=== PATIENT | female | born 1945 | race Caucasian/White ===

== ENCOUNTER 2020-10-02 20:23 | Emergency (ER) | payer MEDICARE, OTHER ==
[~2020-10-02] VITALS: Ht 162.5 cm; Wt 98.5 kg
[~2020-10-02 20:23] MED LIST: ACHD5005 PO; ASPI-999 PO; LEVO112T55 PO
--- NOTE | 2020-10-02 20:36 | ED Neurological Problem ---
General Stated Complaint: LT SIDE NUMBNESS IN FACE/ARMS History of Present Illness Date Seen by Provider: Oct 02, 2020 Time Seen by Provider: 20:31 Initial Comments 75 y/o female presents 30 minutes after onset of sudden left arm weakness and numbness. States her arm "was just flopping" as she couldn't move it at all. By arrival to ER she was able to move it, but still having tingling and now w tingling of left face and mouth. No Hx CVA or other neuro deficits. No recent illness or change to Medical condition. Denies new medication, does not take any anticoagulants. Allergies and Home Medications Allergies Coded Allergies: No Known Drug Allergies (Unverified , 03/24/15) Home Medications Aspirin 81 Mg Tab.chew, 81 MG PO DAILY, (Reported) Hydrocodone Bit/Acetaminophen 1 Each Tablet, 1-2 EACH PO Q6H PRN for PAIN Prescribed by: MIO CAUSEY on 03/24/15 1710 Levothyroxine Sodium 112 Mcg Tablet, 112 MCG PO DAILY, (Reported) Patient Home Medication List Home Medication List Reviewed: Yes Review of Systems Review of Systems Constitutional: No chills, No fever, No malaise; weakness Eyes: No Symptoms Reported Ears, Nose, Mouth, Throat: no symptoms reported Respiratory: no symptoms reported; No cough, No short of breath Cardiovascular: No chest pain, No edema, No palpitations, No syncope Gastrointestinal: No abdominal pain, No loss of appetite, No nausea, No vomiting Musculoskeletal: No back pain, No joint pain, No muscle pain; muscle weakness (LUE) Psychiatric/Neurological: See HPI, Numbness, Tingling; Denies Unable to Move Lower Ext; Unable to Move Upper Ext (prior to arrival, resolved on arrival), Weakness Past Azjxvwe-Yxmznb-Teeufo Hx Past Med/Social Hx: Reviewed Nursing Past Med/Soc Hx Immunizations Up To Date Date of Pneumonia Vaccine: Feb 02, 2015 Date of Influenza Vaccine: Feb 02, 2015 Past Medical History Appendectomy High Cholesterol, Hypertension Hypothyroidsim Family Medical History No Pertinent Family Hx Physical Exam Vital Signs Vital Signs - First Documented 10/02/20 20:25 Temp 36.3 Pulse 83 Resp 20 B/P (MAP) 152/76 (101) Pulse Ox 96 O2 Delivery Room Air Capillary Refill : Height, Weight, BMI Height: 5'4" Weight: 200lbs. oz. [id number]; BMI Method:Stated General Appearance: WD/WN, no apparent distress HEENT: PERRL/EOMI, normal ENT inspection Neck: non-tender, full range of motion, supple, normal inspection Respiratory: chest non-tender, lungs clear, normal breath sounds, no respiratory distress, no accessory muscle use Cardiovascular: regular rate, rhythm, no edema, no JVD Gastrointestinal: normal bowel sounds, non tender, soft, no organomegaly, no pulsatile mass Back: normal inspection, no CVA tenderness, no vertebral tenderness Extremities: normal range of motion, non-tender, normal inspection, no pedal edema, no calf tenderness, normal capillary refill Neurologic/Psychiatric: steam gigger II-XII nml as tested, alert, normal mood/affect, oriented x 3 Crainal Nerves: normal hearing, normal speech, PERRL; No abnormal speech, No facial asymmetry, No facial droop; facial paresthesias (left) Skin: normal color, warm/dry Stroke NIH Stroke Scale Assessment Select: Initial Level of Consciousness: 0=Alert (0), Level of Consciousness- Questions: 0=Answers both month/age (0), LOC Commands: 0=Performs both tasks (0), Gaze: Normal (0), Visual Alston: 0=No visual loss (0), Facial Movement (Facial Paresis): 0=Normal symmetrical mnt (0), Motor Function-Arms Right: 0=No drift (0), Motor Function-Arms Left: 0=No drift (0), Motor Function-Legs Right: 0=No drift (0), Motor Function-Legs Left: 0=No drift (0), Limb Ataxia: 0=Absent (0), Sensory: 1=Mild to Moderate loss (1), Best Language: 0=No aphasia (0), Dysarthria: 0=Normal (0), Extinction & Inattention: 0=No abnormality (0), Total: 1 Progress/Results/Core Measures Results/Orders Lab Results Laboratory Tests Test 10/02/20 10:45 Range/Units White Blood Count 13.3 H 4.3-11.0 10^3/uL Red Blood Count 4.88 4.35-5.85 10^6/uL Hemoglobin 14.6 11.5-16.0 G/DL Hematocrit 43 35-52 % Mean Corpuscular Volume 87 80-99 FL Mean Corpuscular Hemoglobin 30 25-34 PG Mean Corpuscular Hemoglobin Concent 34 32-36 G/DL Red Cell Distribution Width 13.2 10.0-14.5 % Platelet Count 248 130-400 10^3/uL Mean Platelet Volume 9.8 7.4-10.4 FL Immature Granulocyte % (Auto) 0 % Neutrophils (%) (Auto) 45 42-75 % Lymphocytes (%) (Auto) 44 12-44 % Monocytes (%) (Auto) 8 0-12 % Eosinophils (%) (Auto) 2 0-10 % Basophils (%) (Auto) 1 0-10 % Neutrophils # (Auto) 6.0 1.8-7.8 X 10^3 Lymphocytes # (Auto) 5.9 H 1.0-4.0 X 10^3 Monocytes # (Auto) 1.1 H 0.0-1.0 X 10^3 Eosinophils # (Auto) 0.3 0.0-0.3 10^3/uL Basophils # (Auto) 0.1 0.0-0.1 10^3/uL Immature Granulocyte # (Auto) 0.0 0.0-0.1 10^3/uL Prothrombin Time 15.0 H 12.2-14.7 SEC INR Comment 1.2 0.8-1.4 Activated Partial Thromboplast Time 25 24-35 SEC Sodium Level 139 135-145 MMOL/L Potassium Level 3.6 3.6-5.0 MMOL/L Chloride Level 101 98-107 MMOL/L Carbon Dioxide Level 26 21-32 MMOL/L Anion Gap 12 5-14 MMOL/L Blood Urea Nitrogen 20 H 7-18 MG/DL Creatinine 0.99 0.60-1.30 MG/DL Estimat Glomerular Filtration Rate 55 BUN/Creatinine Ratio 20 Glucose Level 114 H 70-105 MG/DL Calcium Level 9.8 8.5-10.1 MG/DL Corrected Calcium 10.1 8.5-10.1 MG/DL Total Bilirubin 0.8 0.1-1.0 MG/DL Aspartate Amino Transf (AST/SGOT) 20 5-34 U/L Alanine Aminotransferase (ALT/SGPT) 17 0-55 U/L Alkaline Phosphatase 96 40-136 U/L Troponin I < 0.30 <0.30 NG/ML Total Protein 7.3 6.4-8.2 GM/DL Albumin 3.6 3.2-4.5 GM/DL My Orders Orders - GIN MORALES DO Ct Head Wo (10/02/20 20:28) Ed Iv/Invasive Line Start (10/02/20 20:30) Ekg Tracing (10/02/20 20:30) Troponin I Fs (10/02/20 20:30) Cbc With Automated Diff (10/02/20 20:30) Comprehensive Metabolic Panel (10/02/20 20:30) Partial Thromboplastin Time (10/02/20 20:30) Protime With Inr (10/02/20 20:30) Aspirin Chewable Tablet (Baby Aspirin Ch (10/02/20 21:00) Medications Given in ED Current Medications Medications Dose Ordered Sig/Oapl Route Start Time Stop Time Status Last Admin Dose Admin Aspirin 324 mg ONCE ONCE PO 10/02/20 21:00 10/02/20 21:01 DC 10/02/20 21:02 324 MG Vital Signs/I&O 10/02/20 10/02/20 20:25 21:21 Temp 36.3 Pulse 83 74 Resp 20 18 B/P (MAP) 152/76 (101) 113/96 Pulse Ox 96 95 O2 Delivery Room Air Room Air Progress Progress Note : Time: 21:15 Progress Note Symptoms rapidly resolving (less than one hour after onset) on arrival to ER and cont'd to improve to resolution in ER. Discussed labs and CT findings and need for follow up for Neuro evaluation. Advised to take a full ASA daily until instructed otherwise by her PCP or Neurologist. Advised to call 911 for any new neuro deficit or concerns of stroke. Pt and family in agreement w Tx given and planned follow up. All questions were answered and reassurance given w warnings of potential stroke risk. Initial ECG Impression Date: Oct 02, 2020 Initial ECG Impression Time: 20:35 Initial ECG Rate: 70 Initial ECG Rhythm: Normal Sinus Initial ECG Intervals: Normal Initial ECG Impression: Normal Diagnostic Imaging Diagonstic Imaging: CT Comments COMPARISON: None available. FINDINGS: The cerna-white matter differentiation is normal. No mass effect or midline shift. The ventricles are normal in size and configuration. Basilar cisterns are patent. There are no intra- or extra-axial fluid collections. There is no intracranial hemorrhage. Periventricular white matter hypoattenuation is in keeping with chronic small vessel ischemic changes. The orbits are normal. Paranasal sinuses are normal. Mastoid air cells are clear. No soft tissue abnormality is seen. No osseus lesions or fractures are seen. IMPRESSION: 1. Chronic microvascular changes in the white matter without acute intracranial abnormality. Dictated by: Dictated on workstation # [id number] Dict: 10/02/202040 Trans: 10/02/202099 [facility] [id number] Interpreted by: BRODERICK HERNANDEZ MD Electronically signed by: BRODERICK HERNANDEZ MD 10/02/202099 Departure Impression Primary Impression: Transient cerebral ischemia Qualified Codes: G45.9 - Transient cerebral ischemic attack, unspecified Disposition: HOME, SELF-CARE Condition: Improved Departure-Patient Inst. Referrals: DAY STALLWORTH MD (PCP/Family) Primary Care Physician Patient Instructions: Transient Ischemic Attack (DC) Add. Discharge Instructions: Call Dr Stallworth tomorrow morning to ask about a Neurology evaluation after having a "TIA". Take a Full aspirin (or 4 baby aspirin) daily until instructed otherwise by a Physician. Call 911 for any new Stroke symptoms GIN MORALES DO Oct 02, 2020 20:36
--- NOTE | 2020-10-02 20:47 | Diagnostic Imaging Report ---
EXAMINATION: CT head without contrast. TECHNIQUE: Multiple contiguous axial images were obtained through the brain without the use of intravenous contrast. All CT scans use one or more of the following dose optimizing techniques: automated exposure control, MA and/or KvP adjustment based on patient size and exam type or iterative reconstruction. HISTORY: Left arm numbness COMPARISON: None available. FINDINGS: The cerna-white matter differentiation is normal. No mass effect or midline shift. The ventricles are normal in size and configuration. Basilar cisterns are patent. There are no intra- or extra-axial fluid collections. There is no intracranial hemorrhage. Periventricular white matter hypoattenuation is in keeping with chronic small vessel ischemic changes. The orbits are normal. Paranasal sinuses are normal. Mastoid air cells are clear. No soft tissue abnormality is seen. No osseus lesions or fractures are seen. IMPRESSION: 1. Chronic microvascular changes in the white matter without acute intracranial abnormality. Dictated by: Dictated on workstation # [id number]
[2020-10-02 20:55] LABS: BASOPHILS # (AUTO) 0.1 10^3/uL (0.0-0.1); BASOPHILS % (AUTO) 1 % (0-10); EOSINOPHILS # (AUTO) 0.3 10^3/uL (0.0-0.3); EOSINOPHILS % (AUTO) 2 % (0-10); HEMATOCRIT 43 % (35-52); HEMOGLOBIN 14.6 G/DL (11.5-16.0); LYMPHOCYTES # (AUTO) 5.9 X 10^3 (1.0-4.0); LYMPHOCYTES % (AUTO) 44 % (12-44); MEAN CORPUSCULAR HEMOGLOBIN 30 PG (25-34); MEAN CORPUSCULAR HGB CONC 34 G/DL (32-36); MEAN CORPUSCULAR VOLUME 87 FL (80-99); MEAN PLATELET VOLUME 9.8 FL (7.4-10.4); MONOCYTES # (AUTO) 1.1 X 10^3 (0.0-1.0); MONOCYTES % (AUTO) 8 % (0-12); NEUTROPHILS % (AUTO) 45 % (42-75); PLATELET COUNT 248 10^3/uL (130-400); WHITE BLOOD COUNT 13.3 10^3/uL (4.3-11.0)
[2020-10-02] MEDS ORDERED: ASPIRIN 81 MG CHEW (CHILDREN'S ASA) PO ONE (21:00)
[2020-10-02 21:07] LABS: INR 1.2 (0.8-1.4)
[2020-10-02 21:13] LABS: ALANINE AMINOTRANSFERASE 17 U/L (0-55); ALBUMIN 3.6 GM/DL (3.2-4.5); ALKALINE PHOSPHATASE 96 U/L (40-136); BILIRUBIN,TOTAL 0.8 MG/DL (0.1-1.0); BUN/CREATININE RATIO 20; CALCIUM 9.8 MG/DL (8.5-10.1); CARBON DIOXIDE 26 MMOL/L (21-32); CHLORIDE 101 MMOL/L (98-107); CREATININE SERUM 0.99 MG/DL (0.60-1.30); GFR ESTIMATED 55; GLUCOSE 114 MG/DL (70-105); POTASSIUM 3.6 MMOL/L (3.6-5.0); SODIUM 139 MMOL/L (135-145); TOTAL PROTEIN 7.3 GM/DL (6.4-8.2)
[2020-10-02 21:21] VITALS: BP 113/96
== END 2020-10-02 21:21 | disposition home or self-care (01) ==
LOC: EDUNIT# 20:23 → ER FS 20:25
DX: G45.9 Transient cerebral ischemic attack, unspecified (principal); I10 Essential (primary) hypertension; E03.9 Hypothyroidism, unspecified; Z79.890 Hormone replacement therapy; Z79.899 Other long term (current) drug therapy; Z79.82 Long term (current) use of aspirin
CPT/HCPCS: 36415; 70450; 80053; 84484; 85025; 85610; 85730

== ENCOUNTER 2020-10-03 21:10 | Inpatient (IN) | payer MEDICARE, OTHER ==
[~2020-10-03] VITALS: Ht 162.5 cm; Wt 97.0 kg
[2020-10-03 21:13] VITALS: BP 137/109
[2020-10-03 21:33] LABS: BASOPHILS # (AUTO) 0.1 10^3/uL (0.0-0.1); BASOPHILS % (AUTO) 0 % (0-10); EOSINOPHILS # (AUTO) 0.3 10^3/uL (0.0-0.3); EOSINOPHILS % (AUTO) 2 % (0-10); HEMATOCRIT 42 % (35-52); HEMOGLOBIN 14.6 G/DL (11.5-16.0); LYMPHOCYTES # (AUTO) 5.7 X 10^3 (1.0-4.0); LYMPHOCYTES % (AUTO) 43 % (12-44); MEAN CORPUSCULAR HEMOGLOBIN 30 PG (25-34); MEAN CORPUSCULAR HGB CONC 35 G/DL (32-36); MEAN CORPUSCULAR VOLUME 87 FL (80-99); MEAN PLATELET VOLUME 9.8 FL (7.4-10.4); MONOCYTES # (AUTO) 1.2 X 10^3 (0.0-1.0); MONOCYTES % (AUTO) 9 % (0-12); NEUTROPHILS # (AUTO) 6.1 X 10^3 (1.8-7.8); NEUTROPHILS % (AUTO) 45 % (42-75); PLATELET COUNT 244 10^3/uL (130-400); WHITE BLOOD COUNT 13.4 10^3/uL (4.3-11.0)
[2020-10-03 21:46] LABS: EOSINOPHILS % (MANUAL) 2 %; LYMPHOCYTES % (MANUAL) 23 %; MONOCYTES % (MANUAL) 6 %; NEUTROPHILS % (MANUAL) 50 %
[2020-10-03 21:47] LABS: RBC MORPH NORMAL; REACTIVE LYMPHOCYTES 19 %
[2020-10-03 21:48] LABS: ALANINE AMINOTRANSFERASE 18 U/L (0-55); ALBUMIN 3.7 GM/DL (3.2-4.5); ALKALINE PHOSPHATASE 97 U/L (40-136); BILIRUBIN,TOTAL 0.9 MG/DL (0.1-1.0); BUN/CREATININE RATIO 16; CALCIUM 9.4 MG/DL (8.5-10.1); CARBON DIOXIDE 25 MMOL/L (21-32); CHLORIDE 99 MMOL/L (98-107); CREATININE SERUM 0.98 MG/DL (0.60-1.30); GFR ESTIMATED 55; GLUCOSE 104 MG/DL (70-105); POTASSIUM 3.6 MMOL/L (3.6-5.0); SODIUM 136 MMOL/L (135-145); TOTAL PROTEIN 7.3 GM/DL (6.4-8.2)
[2020-10-03 21:49] LABS: INR 1.2 (0.8-1.4); PROTHROMBIN TIME PATIENT 15.2 SEC (12.2-14.7)
--- NOTE | 2020-10-03 21:50 | ED General ---
General Chief Complaint: Neuro-Stroke Like Symptoms Stated Complaint: LT ARM/FACE NUMBNESS,LT HAND SWELL,SLURRING SPEECH Source of Information: Patient, Old Records History of Present Illness Date Seen by Provider: Oct 03, 2020 Time Seen by Provider: 21:11 Initial Comments 75 yo female presenting with complaints of continued numbness in left thumb all day since leaving last night. Then tonight around 1999 she woke up from a nap and had numbness and swelling in lower lip left side and left arm and hand. She had weakness in her left arm and hand where she was unable to grab grasp things at home. She felt her hand was just flopping. She took 4 baby aspirin at home when this was occurring. She had family bring her to the emergency department. She was seen October 02 for similar symptoms. At that time her left face was numb including left arm. Her symptoms quickly improved while she was here so she was discharged home. She states she was to see Dr. Stallworth in the morning and had planned on getting referred to neurology and [place] for further evaluation and work-up. However tonight when her symptoms returned she came back to the emergency department by private vehicle with her family. She denies any fall or injury. She denies taking any blood thinners. She has not had a prior stroke. Associated Systoms: No Chest Pain, No Cough, No Diaphoresis, No Fever/Chills, No Headaches, No Loss of Appetite, No Malaise, No Nausea/Vomiting, No Rash, No Seizure, No Shortness of Air, No Syncope, No Weakness Allergies and Home Medications Allergies Coded Allergies: No Known Drug Allergies (Unverified , 03/24/15) Home Medications Aspirin 81 Mg Tab.chew, 81 MG PO DAILY, (Reported) Hydrocodone Bit/Acetaminophen 1 Each Tablet, 1-2 EACH PO Q6H PRN for PAIN Prescribed by: MIO CAUSEY on 03/24/15 1710 Levothyroxine Sodium 112 Mcg Tablet, 112 MCG PO DAILY, (Reported) Patient Home Medication List Home Medication List Reviewed: Yes Review of Systems Review of Systems Constitutional: No chills, No fever EENTM: no symptoms reported Respiratory: no symptoms reported Cardiovascular: no symptoms reported Gastrointestinal: no symptoms reported Genitourinary: no symptoms reported Musculoskeletal: see HPI Skin: see HPI Psychiatric/Neurological: See HPI Hematologic/Lymphatic: Denies Blood Clots Past Xzzwxfo-Mbwfeu-Fcdtso Hx Past Med/Social Hx: Reviewed Nursing Past Med/Soc Hx Immunizations Up To Date Date of Pneumonia Vaccine: Feb 02, 2015 Date of Influenza Vaccine: Feb 02, 2015 Past Medical History Surgeries: Yes (D&C) Appendectomy Respiratory: No Cardiac: Yes High Cholesterol, Hypertension Neurological: No Gastrointestinal: No Musculoskeletal: No Endocrine: Yes Hypothyroidsim Cancer: No Psychosocial: No Family Medical History No Pertinent Family Hx Physical Exam Vital Signs Vital Signs - First Documented 10/03/20 21:13 Temp 36.9 Pulse 76 Resp 15 B/P (MAP) 137/109 Pulse Ox 94 O2 Delivery Room Air Capillary Refill : Height, Weight, BMI Height: 5'4" Weight: 200lbs. oz. [id number]; 37.00 BMI Method:Stated General Appearance: WD/WN, Anxious, Obese HEENT: PERRL/EOMI, Normal ENT Inspection, Pharynx Normal Neck: Full Range of Motion, Normal Inspection, Non Tender, Supple; No Carotid Bruit Respiratory: Chest Non Tender, Lungs Clear, Normal Breath Sounds, No Accessory Muscle Use, No Respiratory Distress Cardiovascular: Regular Rate, Rhythm, No Murmur, Normal Peripheral Pulses Gastrointestinal: Normal Bowel Sounds, No Pulsatile Mass, Non Tender, Soft Rectal: Deferred Extremity: Normal Capillary Refill, Non Tender, No Calf Tenderness, No Pedal Edema, Swelling (Left hand) Neurologic/Psychiatric: Alert, Oriented x3, 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 Sensation intact to light touch throughout the rest of the body) Skin: Normal Color, Warm/Dry Progress/Results/Core Measures Suspected Sepsis SIRS Temperature: Pulse: 76 Respiratory Rate: 15 Laboratory Tests 10/03/20 21:22: White Blood Count 13.4H Blood Pressure 137 /109 Mean: Laboratory Tests 10/03/20 21:22: Creatinine 0.98, INR Comment 1.2, Platelet Count 244, Total Bilirubin 0.9 Results/Orders Lab Results Laboratory Tests Test 10/03/20 21:22 10/03/20 21:41 10/03/20 22:04 Range/Units White Blood Count 13.4 H 4.3-11.0 10^3/uL Red Blood Count 4.87 4.35-5.85 10^6/uL Hemoglobin 14.6 11.5-16.0 G/DL Hematocrit 42 35-52 % Mean Corpuscular Volume 87 80-99 FL Mean Corpuscular Hemoglobin 30 25-34 PG Mean Corpuscular Hemoglobin Concent 35 32-36 G/DL Red Cell Distribution Width 13.2 10.0-14.5 % Platelet Count 244 130-400 10^3/uL Mean Platelet Volume 9.8 7.4-10.4 FL Immature Granulocyte % (Auto) 0 % Neutrophils (%) (Auto) 45 42-75 % Lymphocytes (%) (Auto) 43 12-44 % Monocytes (%) (Auto) 9 0-12 % Eosinophils (%) (Auto) 2 0-10 % Basophils (%) (Auto) 0 0-10 % Neutrophils # (Auto) 6.1 1.8-7.8 X 10^3 Lymphocytes # (Auto) 5.7 H 1.0-4.0 X 10^3 Monocytes # (Auto) 1.2 H 0.0-1.0 X 10^3 Eosinophils # (Auto) 0.3 0.0-0.3 10^3/uL Basophils # (Auto) 0.1 0.0-0.1 10^3/uL Immature Granulocyte # (Auto) 0.0 0.0-0.1 10^3/uL Neutrophils % (Manual) 50 % Lymphocytes % (Manual) 23 % Monocytes % (Manual) 6 % Eosinophils % (Manual) 2 % Reactive Lymphocytes 19 % Blood Morphology Comment NORMAL Prothrombin Time 15.2 H 12.2-14.7 SEC INR Comment 1.2 0.8-1.4 Activated Partial Thromboplast Time 25 24-35 SEC Sodium Level 136 135-145 MMOL/L Potassium Level 3.6 3.6-5.0 MMOL/L Chloride Level 99 98-107 MMOL/L Carbon Dioxide Level 25 21-32 MMOL/L Anion Gap 12 5-14 MMOL/L Blood Urea Nitrogen 16 7-18 MG/DL Creatinine 0.98 0.60-1.30 MG/DL Estimat Glomerular Filtration Rate 55 BUN/Creatinine Ratio 16 Glucose Level 104 70-105 MG/DL Calcium Level 9.4 8.5-10.1 MG/DL Corrected Calcium 9.6 8.5-10.1 MG/DL Total Bilirubin 0.9 0.1-1.0 MG/DL Aspartate Amino Transf (AST/SGOT) 21 5-34 U/L Alanine Aminotransferase (ALT/SGPT) 18 0-55 U/L Alkaline Phosphatase 97 40-136 U/L Troponin I < 0.30 <0.30 NG/ML Total Protein 7.3 6.4-8.2 GM/DL Albumin 3.7 3.2-4.5 GM/DL Glucometer 103 70-110 MG/DL Urine Color YELLOW Urine Clarity CLEAR Urine pH 6.0 5-9 Urine Specific [place] <=1.005 1.016-1.022 Urine Protein NEGATIVE NEGATIVE Urine Glucose (UA) NEGATIVE NEGATIVE Urine Ketones NEGATIVE NEGATIVE Urine Nitrite NEGATIVE NEGATIVE Urine Bilirubin NEGATIVE NEGATIVE Urine Urobilinogen 0.2 < = 1.0 MG/DL Urine Leukocyte Esterase 1+ H NEGATIVE Urine RBC (Auto) TRACE H NEGATIVE Urine RBC 0-2 /HPF Urine WBC 10-25 H /HPF Urine Squamous Epithelial Cells 2-5 /HPF Urine Crystals NONE /LPF Urine Bacteria 2+ /HPF Urine Casts NONE /LPF Urine Mucus NONE /LPF Urine Culture Indicated YES My Orders Orders - YOSELIN CORRALES MD Cbc With Automated Diff (10/03/20 21:17) Protime With Inr (10/03/20 21:17) Partial Thromboplastin Time (10/03/20 21:17) Comprehensive Metabolic Panel (10/03/20 21:17) Troponin I Fs (10/03/20 21:17) Ua Culture If Indicated (10/03/20 21:17) Chest 1 View Ap/Pa Only (10/03/20 21:17) Ekg Tracing (10/03/20 21:17) Accucheck Stat ONCE (10/03/20 21:17) Ed Iv/Invasive Line Start (10/03/20 21:17) Vital Signs Stroke Patient Q15M (10/03/20 21:17) Ct Head Wo-R/O Stroke (10/03/20 21:17) O2 (10/03/20 21:17) Intake & Output 06,14,22 (10/03/20 21:17) Monitor-Rhythm Ecg Trace Only (10/03/20 21:17) Dysphagia Screening Tool (10/03/20 21:17) Manual Differential (10/03/20 21:22) Ct Angio Head/Neck (10/03/20 22:31) Clopidogrel Tablet (Plavix Tablet) (10/03/20 22:31) Iohexol Injection (Omnipaque 350 Mg/Ml 1 (10/03/20 22:45) Received Contrast (Hold Metformin- Contr (10/03/20 22:45) Ns (Ivpb) (Sodium Chloride 0.9% Ivpb Bag (10/03/20 22:45) Urine Culture (10/03/20 22:04) Ceftriaxone For Iv Use (Rocephin For I (10/03/20 23:15) Medications Given in ED Current Medications Medications Dose Ordered Sig/Opal Route Start Time Stop Time Status Last Admin Dose Admin Iohexol 100 ml ONCE ONCE IV 10/03/20 22:45 10/03/20 22:46 DC 10/03/20 23:12 75 ML Sodium Chloride 100 ml ONCE ONCE IV 10/03/20 22:45 10/03/20 22:46 DC 10/03/20 23:13 80 ML Vital Signs/I&O 10/03/20 10/03/20 10/03/20 21:13 21:13 23:59 Temp 36.9 36.9 Pulse 76 76 66 Resp 15 15 16 B/P (MAP) 137/109 137/109 (118) 141/88 Pulse Ox 94 94 96 O2 Delivery Room Air Room Air Capillary Refill : Point of Care Testing Finger Stick Blood Glucose: 108 Progress Note #1: Progress Note Patient was started as a stroke activation for her complaint and symptoms. We will compare her testing to what was done on the . She reports that she is already seen improvement from her symptoms started at home around 8 PM. Differential diagnosis includes stroke, TIA, thrombus in heart rate with clot seeding Progress Note #2: Time: 21:54 Progress Note Labs are all stable from October 02. Mild elevation of WBC count. No acute changes on CT head or CXR. Pt continues to complain of numbness in left hand/fingertips. Will check with patient to see if they are wanting to go to [place] still can call to see if I can reach the neurology/stroke provider there and see what they recommend. Progress Note #3: Progress Note Patient and family state that they would like to go south to [place] or [place]. They report being told last night by the ER doctor that she had to be seen by neurologist so she would like to do that by going to [place]. 221 call placed to [facility] in [place] and told by [place] at the transfer center that they were at capacity and did not have beds available 2214 [place] at transfer center for [facility] stated that they were at capacity and did not have beds available [address] Augustin about possible admission to [facility] for risk stratification work-up for TIA. She requested neurology be consulted through the stroke consultation line. [address] Mcginnis at the stroke neurology consult line. He recommended MRI brain to evaluate for possible cortical stroke. manager income tax to watch for possible atrial fibrillation as source of her symptoms. CTA head and neck to look for large vessel occlusion and evaluate carotids. Echocardiogram to look for thrombus in heart. May need event monitor if not picking up any arrhythmia or atrial fibrillation on telemetry in hospital. Dual antiplatelet therapy with Plavix and aspirin for at least a month. Change her cholesterol medicine from Simvastatin 20 mg to Atorvastatin 40 mg. 2314 d/w Dr. Augustin and will admit to stepdown or icu to get neurochecks. She also has findings for a UTI so will give Rocephin to help treat for that. ECG Initial ECG Impression Date: Oct 03, 2020 Initial ECG Impression Time: 21:25 Initial ECG Rate: 74 Initial ECG Rhythm: Normal Sinus Initial ECG Comparisson: Unchanged Comment Sinus rhythm with heart rate 74 bpm. Borderline prolonged MA interval at 223 ms. QT interval 420 ms with a QTc interval 4 and [address] elevation. Appears similar to prior tracings. Diagnostic Imaging Diagonstic Imaging: Xray Plain Films/CT/US/NM/MRI: chest Comments NAME: [facility] REC#: [id number] PT STATUS: REG ER : 1945 PHYSICIAN: YOSELIN CORRALES MD ADMIT DATE: 10/03/20/ER FS Draft Date of Exam:10/03/20 CHEST 1 VIEW AP/PA ONLY EXAMINATION: Chest 1 view. HISTORY: Transient ischemic attack. COMPARISON: None available. FINDINGS: The lungs are clear without edema or pneumonia. No pleural effusion or pneumothorax. Heart size is normal. IMPRESSION: Clear lungs. Dictated on workstation # [id number] Dict: 10/03/202148 Trans: 10/03/202152 [facility] [id number] Interpreted by: BRODERICK HERNANDEZ MD Electronically signed by: Dorcasnsluz elena Imaging: CT Plain Films/CT/US/NM/MRI: head Comments NAME: [facility] REC#: [id number] PT STATUS: REG ER : 1945 PHYSICIAN: YOSELIN CORRALES MD ADMIT DATE: 10/03/20/ER FS Draft Date of Exam:10/03/20 CT HEAD WO-R/O STROKE EXAMINATION: CT head without contrast. TECHNIQUE: Multiple contiguous axial images were obtained through the brain without the use of intravenous contrast. All CT scans use one or more of the following dose optimizing techniques: automated exposure control, MA and/or KvP adjustment based on patient size and exam type or iterative reconstruction. HISTORY: Lip numbness. COMPARISON: None available. FINDINGS: The cerna-white matter differentiation is normal. No mass effect or midline shift. The ventricles are normal in size and configuration. Basilar cisterns are patent. There is no intra-axial or extra-axial fluid collection. There is no intracranial hemorrhage. The orbits are normal. Paranasal sinuses are normal. Mastoid air cells are clear. No soft tissue abnormality is seen. No osseus lesion or fracture is seen. IMPRESSION: No acute intracranial abnormality. Dictated on workstation # [id number] Dict: 10/03/202146 Trans: 10/03/202152 [facility] [id number] Interpreted by: BRODERICK HERNANDEZ MD Electronically signed by: Marlys Imaging: CT (angiogram) Plain Films/CT/US/NM/MRI: head (and neck) Comments Impression no acute findings in the arteries of the head and brain. No acute findings in the arteries of the neck. Read by radiologist Dr. Ana Blount MD at [phone] and faxed at [phone] Reviewed: Reviewed [facility] Study Departure Communication (Admissions) Time/Spoke to Admitting Phy: 23:14 d/w Dr. Augustin for [facility] and will admit for testing and risk stratification as blane mmended by Dr. Mcginnis from the Neurology stroke line with her having 2 ED visits for similar TIA symptoms in less than 24 hours. Impression Primary Impression: Transient cerebral ischemia Qualified Codes: G45.9 - Transient cerebral ischemic attack, unspecified Additional Impressions: Left face and left arm tingling Cystitis without hematuria Disposition: 30 STILL A PATIENT Condition: Stable Admissions Decision to Admit Reason: Admit from ER (General) Decision to Admit/Date: Oct 03, 2020 Time/Decision to Admit Time: 23:14 Departure-Patient Inst. Referrals: SELFDAY MD (PCP/Family) Primary Care Physician NIH Stroke Scale NIH Stroke Scale NIH : Select: Initial Level of Consciousness: 0=Alert Level of Consciousness-Questio: 0=Answers both month/age LOC Commands: 0=Performs both tasks Gaze: 0=Normal Visual [place]: 0=No visual loss Facial Movement (Facial Paresi: 0=Normal symmetrical mnt Motor Function-Arms Right: 0=No drift Motor Function-Arms Left: 0=No drift Motor Function-Legs Right: 0=No drift Motor Function-Legs Left: 0=No drift Limb Ataxia: 0=Absent Sensory: 1=Mild to Moderate loss Best Language: 0=No aphasia Dysarthria: 0=Normal Extinction & Inattention: 0=No abnormality NIH Stroke Scale Score: 1 YOSELIN CORRALES MD Oct 03, 2020 21:50
--- NOTE | 2020-10-03 21:53 | Diagnostic Imaging Report ---
EXAMINATION: Chest 1 view. HISTORY: Transient ischemic attack. COMPARISON: None available. FINDINGS: The lungs are clear without edema or pneumonia. No pleural effusion or pneumothorax. Heart size is normal. IMPRESSION: Clear lungs. Dictated by: Dictated on workstation # [id number]
--- NOTE | 2020-10-03 21:53 | Diagnostic Imaging Report ---
EXAMINATION: CT head without contrast. TECHNIQUE: Multiple contiguous axial images were obtained through the brain without the use of intravenous contrast. All CT scans use one or more of the following dose optimizing techniques: automated exposure control, MA and/or KvP adjustment based on patient size and exam type or iterative reconstruction. HISTORY: Lip numbness. COMPARISON: None available. FINDINGS: The cerna-white matter differentiation is normal. No mass effect or midline shift. The ventricles are normal in size and configuration. Basilar cisterns are patent. There is no intra-axial or extra-axial fluid collection. There is no intracranial hemorrhage. The orbits are normal. Paranasal sinuses are normal. Mastoid air cells are clear. No soft tissue abnormality is seen. No osseus lesion or fracture is seen. IMPRESSION: No acute intracranial abnormality. Dictated by: Dictated on workstation # [id number]
[2020-10-03] MEDS ORDERED: CLOPIDOGREL 75 MG (PLAVIX) TABLET PO STA (22:31)
[2020-10-03] MEDS ORDERED: IOHEXOL 350 MG/ML 100 ML (OMNIPAQUE 350) VIAL IV ONE (22:45)
[2020-10-03] MEDS ORDERED: HOLD METFORMIN - RECEIVED CONTRAST 20 ML VIAL IV SCH (22:45)
[2020-10-03] MEDS ORDERED: NS 100 ML (IVPB) BAG IV ONE (22:45)
[2020-10-03 22:59] LABS: CLARITY,URINE CLEAR; COLOR,URINE YELLOW
[2020-10-03 23:00] LABS: BILIRUBIN,URINE NEGATIVE (NEGATIVE); GLUCOSE, URINE (UA) NEGATIVE (NEGATIVE); KETONES,URINE NEGATIVE (NEGATIVE); NITRITE,URINE NEGATIVE (NEGATIVE); PROTEIN,URINE NEGATIVE (NEGATIVE)
[2020-10-03 23:01] LABS: BACTERIA,URINE 2+ /HPF; LEUKOCYTE ESTERASE ,URINE 1+ (NEGATIVE); RBC,URINE 0-2 /HPF
[2020-10-03] MEDS ORDERED: cefTRIAXone 1,000 MG in WATER (STERILE) FOR INJECTION 10 ML IV STA (23:15)
[2020-10-04] VITALS (13 sets, daily range): BP systolic 114–144; BP diastolic 72–110
[2020-10-04] MEDS ORDERED: NS IV 1000 ML 1,000 ML ONE (01:07)
[2020-10-04] MEDS: NS IV 1000 ML 1,000 ML IV SCH ×2 (02:23→17:10)
[2020-10-04 04:17] LABS: BASOPHILS % (AUTO) 0 % (0-10); EOSINOPHILS # (AUTO) 0.2 10^3/uL (0.0-0.3); EOSINOPHILS % (AUTO) 2 % (0-10); HEMATOCRIT 47 % (35-52); HEMOGLOBIN 15.6 g/dL (11.5-16.0); LYMPHOCYTES # (AUTO) 3.7 10^3/uL (1.0-4.0); LYMPHOCYTES % (AUTO) 37 % (12-44); MEAN CORPUSCULAR HEMOGLOBIN 30 pg (25-34); MEAN CORPUSCULAR HGB CONC 33 g/dL (32-36); MEAN CORPUSCULAR VOLUME 90 fL (80-99); MEAN PLATELET VOLUME 10.4 fL (9.0-12.2); MONOCYTES # (AUTO) 0.8 10^3/uL (0.0-1.0); MONOCYTES % (AUTO) 8 % (0-12); NEUTROPHILS # (AUTO) 5.1 10^3/uL (1.8-7.8); NEUTROPHILS % (AUTO) 52 % (42-75); PLATELET COUNT 212 10^3/uL (130-400); WHITE BLOOD COUNT 9.9 10^3/uL (4.3-11.0)
[2020-10-04 04:28] LABS: ALBUMIN 3.7 GM/DL (3.2-4.5); CHLORIDE 107 MMOL/L (98-107); POTASSIUM 3.5 MMOL/L (3.6-5.0); SODIUM 142 MMOL/L (135-145)
[2020-10-04 04:29] LABS: CALCIUM 9.3 MG/DL (8.5-10.1)
[2020-10-04 04:30] LABS: GLUCOSE 111 MG/DL (70-105)
[2020-10-04 04:31] LABS: TOTAL PROTEIN 7.6 GM/DL (6.4-8.2)
[2020-10-04 04:32] LABS: BILIRUBIN,TOTAL 0.8 MG/DL (0.1-1.0); CARBON DIOXIDE 24 MMOL/L (21-32)
[2020-10-04 04:34] LABS: ALKALINE PHOSPHATASE 84 U/L (40-136); CREATININE SERUM 0.83 MG/DL (0.60-1.30); GFR ESTIMATED > 60
[2020-10-04 04:35] LABS: BUN/CREATININE RATIO 16
[2020-10-04 04:37] LABS: ALANINE AMINOTRANSFERASE 20 U/L (0-55)
--- NOTE | 2020-10-04 08:14 | Diagnostic Imaging Report ---
PROCEDURE: CT angiography of the head and CT angiography of the neck with and without contrast. TECHNIQUE: Contiguous noncontrast images were obtained from the skull base through the vertex. After intravenous contrast administration, helical CT angiography of the neck was performed. Source data was reformatted into 3D MIP projections. Delayed post contrast acquisition was also obtained. Auto Exposure Controls were utilized during the CT exam to meet ALARA standards for radiation dose reduction. INDICATION: Stroke symptoms left-sided paresthesias, weakness, facial numbness COMPARISON: None. FINDINGS: Visualized arch anatomy is grossly unremarkable. Left vertebral artery is dominant. Bilateral common carotid, internal carotid artery and bilateral vertebral arteries are widely patent. There is no dissection or irregular plaque formation. The right vertebral artery appears to end in PICA. The basilar artery, quechan of Olson and distal branches are intact. There is no large vessel occlusion. There is no aneurysm or AVM. There is no abnormal enhancement or mass. There is a serpiginous appearing fluid collection overlying the right masseter muscle of uncertain etiology. Consider ultrasound correlation. There is some slight inflammatory change in the subcutaneous fat. Underlying osseous structures are grossly unremarkable. The lung apices are clear. Central airways unremarkable. IMPRESSION: 1. No irregular plaque formation, large vessel occlusion or aneurysm. 2. No abnormal enhancement or intracranial mass. 3. Serpiginous appearing fluid collection overlying the right masseter muscle. This could represent congenital brachial cleft cyst given its location. Ultrasound correlation is recommended. Additionally, this could represent a chronic hematoma and/or seroma. Doubtful this represents an abscess. Dictated by: Dictated on workstation # [id number]
--- NOTE | 2020-10-04 08:38 | Diagnostic Imaging Report ---
PROCEDURE: MR imaging of the brain without contrast. TECHNIQUE: Multiplanar, multisequence MR imaging of the brain was performed without contrast. INDICATION: Left arm and face numbness. Evaluate for TIA. COMPARISON: CTA head and neck of 10/03/2020. Findings: Small punctate foci of acute/subacute ischemia are seen in the precentral gyrus of the right frontal lobe. No associated hemorrhage or mass effect is seen. Additional chronic microvascular disease is seen in the periventricular and subcortical white matter. The ventricles, cortical sulci, and basilar cisterns are symmetric and unremarkable. The sellar and suprasellar regions have a normal appearance. The brainstem and posterior fossa are unremarkable. Mild mucosal thickening is seen in the left sphenoid sinus. Otherwise, the paranasal sinuses and mastoid air cells demonstrate normal signal characteristics. The globes and orbits are symmetric and unremarkable. The scalp and calvarium have a normal appearance. The right parotid gland has a multicystic appearance with cystic dilation of the parotid duct. No evidence of acute inflammatory changes are seen. Impression: 1. Small punctate foci of acute/subacute ischemia in the precentral gyrus of the right frontal lobe. No associated mass effect or hemorrhage. 2. Chronic microvascular disease in the periventricular and subcortical white matter. 3. Multicystic appearance of the right parotid gland with cystic dilation of the right parotid duct. Findings likely represent sequelae of sialadenitis. Recommend correlation with patient history. Dictated by: Dictated on workstation # [id number]
[2020-10-04] MEDS: CLOPIDOGREL 75 MG (PLAVIX) TABLET PEG SCH (09:03)
[2020-10-04] MEDS: ASPIRIN 325 MG (5 GR) TABLET PEG SCH (09:03)
[2020-10-04 11:26] LABS: CHOLESTEROL 144 MG/DL (< 200); HDL CHOLESTEROL 55 MG/DL (40-60); TRIGLYCERIDES 121 MG/DL (<150); VLDL CHOLESTEROL 24 MG/DL (5-40)
--- NOTE | 2020-10-04 11:42 | History & Physical ---
HPI History of Present Illness: 75 yo F that presented with left hand numbness and weakness. Patient was seen in the ER on Thursday night but symptoms had resolved prior to arriving to ER and was sent home with close f.u with Dr Stallworth. Last night patient woke up from a nap and the numbness and weakness was worse then on thursday and she again presented to the ER. Both days patient had normal CT heads. [facility] stroke was called and they recommended patient get admitted and monitored and get MRI this AM. This AM patient states that her weakness and numbness has improved but she is still having some numbness in her thumb. Denies any troubles with talking or swallowing. Source: patient, family Exam Limitations: no limitations Date seen by provider: Oct 04, 2020 Time Seen by Provider: 10:00 Attending Physician Sarahi Augustin MD PCP Tip Stallworth MD Consult Date of Admission Oct 04, 2020 at 00:55 Home Medications Home Medications Reviewed patient Home Medication Reconciliation performed by pharmacy medication reconciliations hospital pharmacy technician and/or nursing. Patients Allergies have been reviewed. Allergies Coded Allergies: No Known Drug Allergies (Unverified , 03/24/15) MCG-Gvdzux-Avsoyu Hx Patient Social History Living Status: Lives home alone Recent Hopitalizations: No Immunizations Up To Date Date of Pneumonia Vaccine: Feb 02, 2015 Date of Influenza Vaccine: Jan 26, 2020 Past Medical History HTN hypothyroidism Family Medical History Significant Family History: No Pertinent Family Hx Review of Systems ([facility]) Constitutional: no symptoms reported; No chills, No fever, No malaise, No weakness EENTM: no symptoms reported; No mouth pain, No nose congestion, No nose pain, No throat pain Respiratory: no symptoms reported; No cough, No dyspnea on exertion, No short of breath Cardiovascular: No chest pain, No edema; palpitations Gastrointestinal: no symptoms reported; No abdominal pain, No constipation, No diarrhea, No nausea, No vomiting Genitourinary: No dysuria; frequency; No hematuria Musculoskeletal: no symptoms reported; No back pain, No joint pain, No muscle pain Skin: no symptoms reported; No lesions, No rash Psychiatric/Neurological: Tingling, Weakness Reviewed Test Results Reviewed Test Results Lab Laboratory Tests Test 10/03/20 21:22 10/03/20 21:41 10/03/20 22:04 10/04/20 03:35 Range/Units White Blood Count 13.4 H 4.3-11.0 10^3/uL Red Blood Count 4.87 4.35-5.85 10^6/uL Hemoglobin 14.6 11.5-16.0 G/DL Hematocrit 42 35-52 % Mean Corpuscular Volume 87 80-99 FL Mean Corpuscular Hemoglobin 30 25-34 PG Mean Corpuscular Hemoglobin Concent 35 32-36 G/DL Red Cell Distribution Width 13.2 10.0-14.5 % Platelet Count 244 130-400 10^3/uL Mean Platelet Volume 9.8 7.4-10.4 FL Immature Granulocyte % (Auto) 0 % Neutrophils (%) (Auto) 45 42-75 % Lymphocytes (%) (Auto) 43 12-44 % Monocytes (%) (Auto) 9 0-12 % Eosinophils (%) (Auto) 2 0-10 % Basophils (%) (Auto) 0 0-10 % Neutrophils # (Auto) 6.1 1.8-7.8 X 10^3 Lymphocytes # (Auto) 5.7 H 1.0-4.0 X 10^3 Monocytes # (Auto) 1.2 H 0.0-1.0 X 10^3 Eosinophils # (Auto) 0.3 0.0-0.3 10^3/uL Basophils # (Auto) 0.1 0.0-0.1 10^3/uL Immature Granulocyte # (Auto) 0.0 0.0-0.1 10^3/uL Neutrophils % (Manual) 50 % Lymphocytes % (Manual) 23 % Monocytes % (Manual) 6 % Eosinophils % (Manual) 2 % Reactive Lymphocytes 19 % Blood Morphology Comment NORMAL Prothrombin Time 15.2 H 12.2-14.7 SEC INR Comment 1.2 0.8-1.4 Activated Partial Thromboplast Time 25 24-35 SEC Sodium Level 136 135-145 MMOL/L Potassium Level 3.6 3.6-5.0 MMOL/L Chloride Level 99 98-107 MMOL/L Carbon Dioxide Level 25 21-32 MMOL/L Anion Gap 12 5-14 MMOL/L Blood Urea Nitrogen 16 7-18 MG/DL Creatinine 0.98 0.60-1.30 MG/DL Estimat Glomerular Filtration Rate 55 BUN/Creatinine Ratio 16 Glucose Level 104 70-105 MG/DL Calcium Level 9.4 8.5-10.1 MG/DL Corrected Calcium 9.6 8.5-10.1 MG/DL Total Bilirubin 0.9 0.1-1.0 MG/DL Aspartate Amino Transf (AST/SGOT) 21 5-34 U/L Alanine Aminotransferase (ALT/SGPT) 18 0-55 U/L Alkaline Phosphatase 97 40-136 U/L Troponin I < 0.30 <0.30 NG/ML Total Protein 7.3 6.4-8.2 GM/DL Albumin 3.7 3.2-4.5 GM/DL Glucometer 103 70-110 MG/DL Urine Color YELLOW Urine Clarity CLEAR Urine pH 6.0 5-9 Urine Specific [place] <=1.005 1.016-1.022 Urine Protein NEGATIVE NEGATIVE Urine Glucose (UA) NEGATIVE NEGATIVE Urine Ketones NEGATIVE NEGATIVE Urine Nitrite NEGATIVE NEGATIVE Urine Bilirubin NEGATIVE NEGATIVE Urine Urobilinogen 0.2 < = 1.0 MG/DL Urine Leukocyte Esterase 1+ H NEGATIVE Urine RBC (Auto) TRACE H NEGATIVE Urine RBC 0-2 /HPF Urine WBC 10-25 H /HPF Urine Squamous Epithelial Cells 2-5 /HPF Urine Crystals NONE /LPF Urine Bacteria 2+ /HPF Urine Casts NONE /LPF Urine Mucus NONE /LPF Urine Culture Indicated YES Triglycerides Level 121 <150 MG/DL Cholesterol Level 144 < 200 MG/DL LDL Cholesterol Direct 85 1-129 MG/DL VLDL Cholesterol 24 5-40 MG/DL HDL Cholesterol 55 40-60 MG/DL Test 10/04/20 03:55 Range/Units White Blood Count 9.9 4.3-11.0 10^3/uL Red Blood Count 5.26 H 3.80-5.11 10^6/uL Hemoglobin 15.6 11.5-16.0 g/dL Hematocrit 47 35-52 % Mean Corpuscular Volume 90 80-99 fL Mean Corpuscular Hemoglobin 30 25-34 pg Mean Corpuscular Hemoglobin Concent 33 32-36 g/dL Red Cell Distribution Width 13.1 10.0-14.5 % Platelet Count 212 130-400 10^3/uL Mean Platelet Volume 10.4 9.0-12.2 fL Immature Granulocyte % (Auto) 0 % Neutrophils (%) (Auto) 52 42-75 % Lymphocytes (%) (Auto) 37 12-44 % Monocytes (%) (Auto) 8 0-12 % Eosinophils (%) (Auto) 2 0-10 % Basophils (%) (Auto) 0 0-10 % Neutrophils # (Auto) 5.1 1.8-7.8 10^3/uL Lymphocytes # (Auto) 3.7 1.0-4.0 10^3/uL Monocytes # (Auto) 0.8 0.0-1.0 10^3/uL Eosinophils # (Auto) 0.2 0.0-0.3 10^3/uL Basophils # (Auto) 0.0 0.0-0.1 10^3/uL Immature Granulocyte # (Auto) 0.0 0.0-0.1 10^3/uL Sodium Level 142 135-145 MMOL/L Potassium Level 3.5 L 3.6-5.0 MMOL/L Chloride Level 107 98-107 MMOL/L Carbon Dioxide Level 24 21-32 MMOL/L Anion Gap 11 5-14 MMOL/L Blood Urea Nitrogen 13 7-18 MG/DL Creatinine 0.83 0.60-1.30 MG/DL Estimat Glomerular Filtration Rate > 60 BUN/Creatinine Ratio 16 Glucose Level 111 H 70-105 MG/DL Calcium Level 9.3 8.5-10.1 MG/DL Corrected Calcium 9.5 8.5-10.1 MG/DL Total Bilirubin 0.8 0.1-1.0 MG/DL Aspartate Amino Transf (AST/SGOT) 22 5-34 U/L Alanine Aminotransferase (ALT/SGPT) 20 0-55 U/L Alkaline Phosphatase 84 40-136 U/L Total Protein 7.6 6.4-8.2 GM/DL Albumin 3.7 3.2-4.5 GM/DL Physical Exam-([facility]) Physical Exam Vital Signs VS - Last 72 Hours, by Label 10/03/20 10/03/20 10/03/20 10/04/20 21:13 21:13 23:59 01:08 Temp 36.9 36.9 Pulse 76 76 66 62 Resp 15 15 16 B/P (MAP) 137/109 137/109 (118) 141/88 Pulse Ox 94 94 96 O2 Delivery Room Air Room Air 10/04/20 10/04/20 10/04/20 10/04/20 01:12 01:30 02:00 03:00 Temp 36.9 Pulse 69 55 56 82 Resp 18 15 16 16 B/P (MAP) 141/89 (106) 138/72 (94) 138/72 (94) 131/91 (104) Pulse Ox 96 94 92 92 O2 Delivery Room Air Room Air Room Air Room Air 10/04/20 10/04/20 10/04/20 10/04/20 04:00 04:00 05:00 06:00 Pulse 60 65 77 Resp 16 16 18 B/P (MAP) 126/79 (95) 144/88 (106) 137/93 (108) Pulse Ox 90 96 91 93 O2 Delivery Room Air Room Air Room Air Room Air 10/04/20 10/04/20 10/04/20 10/04/20 07:00 07:00 08:00 08:00 Temp 37.2 Pulse 79 66 Resp 23 B/P (MAP) 134/86 (102) Pulse Ox 91 96 O2 Delivery Room Air Room Air 10/04/20 10/04/20 10/04/20 10/04/20 12:00 12:00 12:30 13:00 Temp 36.4 Pulse 75 93 Resp 16 B/P (MAP) 131/98 (109) Pulse Ox 96 O2 Delivery Room Air Room Air Capillary Refill : Less Than 3 Seconds General Appearance: WD/WN, no apparent distress HEENT: PERRL/EOMI, normal ENT inspection, TMs normal, pharynx normal Neck: non-tender, full range of motion, supple Respiratory: chest non-tender, lungs clear, normal breath sounds, no respiratory distress, no accessory muscle use Cardiovascular: normal peripheral pulses, no edema, no murmur, irregularly irregular Gastrointestinal: normal bowel sounds, non tender, soft, no organomegaly Back: no CVA tenderness, no vertebral tenderness Extremities: normal range of motion, no pedal edema, no calf tenderness, normal capillary refill Neurologic/Psychiatric: railroad hand II-XII nml as tested, alert, normal mood/affect, oriented x 3, sensory deficit (numbness to left thumb, normal dispatcher radio and arm strength) Skin: normal color, warm/dry Lymphatic: no adenopathy Assessment/Plan Assessment/Plan Admission Status: Inpatient Order (span 2 midnights) Reason for Inpatient Admission: CVA concerns, hourly neuro checks (1) Acute ischemic stroke Status: Acute Assessment & Plan: - PT/OT/Speech, ASA/Plavix, stroke team called, MRI this AM confirms CVA, lipid pending, Denies tobacco use (2) Atrial fibrillation Status: Acute Assessment & Plan: - Consulted cardiology, appreciate recommendations, called [facility] stroke to discuss timing of starting OAC, they recommend 48-72 hrs and stop ASA/Plavix at that time Qualifiers: Qualified Codes: I48.91 - Unspecified atrial fibrillation (3) Cystitis without hematuria Status: Acute Assessment & Plan: - Continue antibiotics (4) Hypothyroidism Status: Chronic Assessment & Plan: - Continue home meds Qualifiers: Qualified Codes: E03.9 - Hypothyroidism, unspecified (5) HTN (hypertension) Status: Chronic Assessment & Plan: - Continue home meds Qualifiers: Qualified Codes: I10 - Essential (primary) hypertension Copy Copies To 1: SELF,SARAHI WILLOUGHBY MD, MD Oct 04, 2020 11:42
[2020-10-04] MEDS ORDERED: CALC-823 PO (11:53)
[2020-10-04] MEDS ORDERED: AMLO-250 PO (11:53)
[2020-10-04] MEDS ORDERED: SIMV20TA26 PO (11:53)
[2020-10-04] MEDS ORDERED: ASPI-1238 PO (11:53)
[2020-10-04] MEDS ORDERED: METO50TA15 PO (11:53)
[2020-10-04] MEDS ORDERED: FISH1CAP15 PO (11:53)
[2020-10-04] MEDS ORDERED: LEVO-131 PO (11:53)
--- NOTE | 2020-10-04 12:18 | Consultation ---
History of Present Illness History of Present Illness Patient Consulted On(ashely/time) 10/04/20 12:15 Date Seen by Provider: Oct 04, 2020 Time Seen by Provider: 12:16 Reason for Visit: Cerebrovascular accident. History of Present Illness I had the pleasure of seeing Kaykay in the intensive care unit today. She has a history of hypertension, hyperlipidemia, and obesity among several other less significant problems. 2 days ago she developed tingling in the left side of her face and left hand. She went to the emergency room in [place] and underwent a head CT which was negative. Her symptoms had resolved by the time she was at [place] so the emergency room physician discharged her to home at that time. The following day she felt somewhat fatigued but was not having any recurrent neurologic symptoms until last evening when she developed left arm and hand weakness. She was again having numbness in the left side of her face. She presented to the emergency room in [place] a second time and because of the recurrent nature of her symptoms, she was transferred to [facility] for admission. By report from the nurses, when she first arrived at [facility] she was in sinus rhythm but overnight converted to atrial fibrillation. As such, a cardiology consultation was requested. Her neurologic symptoms have now completely resolved. She denies any chest discomfort. She does get some oc casional dyspnea on exertion. She denies paroxysmal nocturnal dyspnea, orthopnea, palpitations, lightheadedness, syncope, or lower extremity edema. She is a non-smoker. She lives alone but has children close by. Allergies and Home Medications Allergies Coded Allergies: No Known Drug Allergies (Unverified , 03/24/15) Home Medications Amlodipine Besylate 5 Mg Tablet, 5 MG PO DAILY, (Reported) Last Action: Continued Calcium Carbonate 500 Mg Tablet, 500 MG PO DAILY, (Reported) Last Action: Reviewed Fish Oil/Dha/Epa 1 Each Capsule, 1 EACH PO DAILY, (Reported) Last Action: Reviewed Levothyroxine Sodium 125 Mcg Tablet, 125 MCG PO DAILY, (Reported) Last Action: Continued Metoprolol Tartrate 50 Mg Tablet, 50 MG PO BID, (Reported) Last Action: Continued Patient Home Medication List Home Medication List Reviewed: Yes Past Jcjfttk-Dyytwa-Aqmjty Hx Past Med/Social Hx: Reviewed Nursing Past Med/Soc Hx Patient Social History Alcohol Use: Denies Use Smoking Status: Never a Smoker Recent Infectious Disease Expo: No Recent Hopitalizations: No Immunizations Up To Date Date of Pneumonia Vaccine: Feb 02, 2015 Date of Influenza Vaccine: Jan 26, 2020 Seasonal Allergies Seasonal Allergies: No Past Medical History Surgeries: Yes (D&C) Appendectomy Respiratory: No Cardiac: Yes High Cholesterol, Hypertension Neurological: No Genitourinary: No Gastrointestinal: No Musculoskeletal: No Endocrine: Yes Hypothyroidsim HEENT: No Cancer: No Psychosocial: No Integumentary: No Blood Disorders: No Family Medical History No Pertinent Family Hx Review of Systems-General Other Review of 10 organ systems is as per the history of present illness, otherwise negative. Physical Exam-General Problems Physical Exam Vital Signs Vital Signs - First Documented 10/03/20 21:13 Temp 36.9 Pulse 76 Resp 15 B/P (MAP) 137/109 Pulse Ox 94 O2 Delivery Room Air Capillary Refill : Less Than 3 Seconds General Appearance: WD/WN, no apparent distress, obese Eyes: Bilateral Eye Normal Inspection, Bilateral Eye EOMI, Bilateral Eye Other (No xanthelasma. No scleral icterus.) Neck: non-tender, full range of motion, supple, normal inspection Respiratory: lungs clear, normal breath sounds, no respiratory distress Cardiovascular: regular rate, rhythm, no edema, no gallop, no JVD, no murmur Peripheral Pulses: 4+ Carotid (R), 4+ Carotid (L) Gastrointestinal: normal bowel sounds, non tender, soft, no organomegaly Rectal: deferred Back: normal inspection Extremities: normal range of motion, non-tender, normal inspection, no pedal edema Neurologic/Psychiatric: boom tender II-XII nml as tested, alert, normal mood/affect, oriented x 3 Skin: normal color, warm/dry Assessment/Plan Assessment/Plan Admission Diagnosis/Plan Paroxysmal atrial fibrillation. This is a new diagnosis. This is in the setting of a subacute probable embolic stroke. I suspect she may be having intermittent asymptomatic atrial fibrillation that led to the stroke. Her heart rate appears controlled on beta-lauro which he has been taking at home for hypertension. She was initially placed on aspirin and clopidogrel due to the acute stroke. However, in light of the development of the atrial fibrillation, she would need to be changed over to oral anticoagulation without aspirin or clopidogrel. The primary provider has spoken with a neurologist at [facility] who recommends waiting 48 hours prior to starting oral anticoagulation. At that time the aspirin and clopidogrel should be discontinued. I will plan to see her in the office in 1 month and then we can schedule her for cardioversion if she remains in atrial fibrillation at that time. Subacute cerebrovascular accident. She may have suffered the onset of an acute embolic cerebrovascular accident 2 days ago. We will adjust the antithrombotic agents as above. Essential hypertension. Her blood pressure appears reasonably controlled on her outpatient medications. Mixed hyperlipidemia. She was taking simvastatin at home. This has been changed to moderate dose atorvastatin in light of the acute cerebrovascular accident. Obesity. She needs to work on weight loss to help reduce the risk of long-term side effects from obesity AYSE MCGRAW JR, MD Oct 04, 2020 12:18
--- NOTE | 2020-10-04 13:49 | Physical Therapy Evaluation ---
PT Evaluation-General Medical Diagnosis Admission Date Oct 04, 2020 at 11:08 Medical Diagnosis: TIA/cystitis Onset Date: Oct 03, 2020 Therapy Diagnosis Therapy Diagnosis: debility Height/Weight Height (Feet): 5 Height (Inches): 4 Weight (Pounds): 200 Precautions Precautions/Isolations: Standard Precautions Referral Physician: Demetria Reason for Referral: Evaluation/Treatment Medical History Pertinent Medical History: HTN, Hypothroidism Current History ER secondary to left UE and face numbness and slurred speech Reviewed History: Yes Social History Home: Single Level Current Living Status: Children Prior Prior Level of Function SCALE: Activities may be completed with or without assistive devices. 8-[id number]-[id number] completes the activity by him/herself with no assistance from a helper. 5-Set-up or Clean-up Assistance-helper sets up or cleans up; patient completes activity. [place] assists only prior to or following the activity. 4-Supervision or Touching Assistance-helper provides verbal cues and/or touching/steadying and/or contact guard assistance as patient completes activity. Assistance may be provided throughout the activity or intermittently. 3-Partial/Moderate Assistance-helper does LESS THAN HALF the effort. [place] lifts, holds or supports trunk or limbs, but provides less than half the effort. 2-Substantial/Maximal Assistance-helper does MORE THAN HALF the effort. [place] lifts or holds trunk or limbs and provides more than half the effort. 6-Laonwvica-bsclft does ALL the effort. Patient does none of the effort to complete the activity. Or, the assistance of 2 or more helpers is required for the patient to complete the activity. If activity was not attempted, code reason: 7-Patient Refused. 9-Not Applicable-not attempted and the patient did not perform the activity before the current illness, exacerbation or injury. 10-Not Attempted due to Environmental Limitations-(lack of equipment, weather restraints, etc.). 88-Not Attempted due to Medical Conditions or Safety Concerns. Bed Mobility: 6 Transfers (B,C,W/C): 6 Gait: 6 Stairs: 6 Indoor Mobility (Ambulation): Independent Stairs: Independent Prior Devices Use: None PT Evaluation-Current Subjective Patient agrees to PT. Objective Patient Orientation: Normal For Age ROM/Strength ROM Lower Extremities bilateral LE WFL Strength Lower Extremities 4/5 grossly bilateral LE all planes Integumentary/Posture Bowel Incontinence: No Bladder Incontinence: No Posture WFL Neuromuscular (Tone, Coordination, Reflexes) grossly intact Sensory Vision: Functional Hearing: Functional Transfers Roll Left to Right (QC): 6 Lying to Sitting/Side of Bed(Q: 6 Sit to Stand (QC): 6 Chair/Apt-ua-Npdra Xfer(QC): 6 Gait Does the Patient Walk?: Yes Mode of Locomotion: Walk Anticipated Mode of Locomotion: Walk Walk 10 feet (QC): 6 Walk 50 ft with 2 Turns(QC): 6 Walk 150 ft (QC): 6 Distance: 500' Gait Assistive Device: None Comments/Gait Description safe and functional with no deviation Balance Sitting Static: Normal Sitting Dynamic: Normal Standing Static: Normal Standing Dynamic: Normal Picking up an Object (QC): 6 Assessment/Needs 75 y.o. female,is currently at [facility] with all gross motor skills and does not require skilled therapy intervention. Rehab Potential: Fair PT Plan Treatment/Plan Treatment Plan: Discontinue PT, goals met Treatment Duration: Oct 04, 2020 Frequency: 1 time per week Estimated Hrs Per Day: .25 hour per day Patient and/or Family Agrees t: Yes Discharge Recommendations Therapy Discharge Recommendati: Home & Family Time/GCodes Time In: 1255 Time Out: 1311 Total Billed Treatment Time: 16 Total Billed Treatment 1 visit EVMod 16 min PRAMOD CARBAJAL PT Oct 04, 2020 13:49
[2020-10-04] MEDS: meTOprolol TARTRATE 50 MG (LOPRESSOR) TAB PO SCH (20:22)
[2020-10-04] MEDS ORDERED: cefTRIAXone 1,000 MG/SWFI 10 ML IV PUSH IV SCH ×2 (21:00)
[2020-10-05] VITALS: BP 121/83
[2020-10-05 04:00] VITALS: BP 126/86
[2020-10-05 05:05] LABS: BASOPHILS # (AUTO) 0.1 10^3/uL (0.0-0.1); BASOPHILS % (AUTO) 1 % (0-10); EOSINOPHILS # (AUTO) 0.2 10^3/uL (0.0-0.3); EOSINOPHILS % (AUTO) 3 % (0-10); HEMATOCRIT 48 % (35-52); LYMPHOCYTES # (AUTO) 3.2 10^3/uL (1.0-4.0); LYMPHOCYTES % (AUTO) 34 % (12-44); MEAN CORPUSCULAR HEMOGLOBIN 30 pg (25-34); MEAN CORPUSCULAR HGB CONC 33 g/dL (32-36); MEAN CORPUSCULAR VOLUME 89 fL (80-99); MEAN PLATELET VOLUME 10.5 fL (9.0-12.2); MONOCYTES # (AUTO) 0.7 10^3/uL (0.0-1.0); MONOCYTES % (AUTO) 7 % (0-12); NEUTROPHILS # (AUTO) 5.2 10^3/uL (1.8-7.8); NEUTROPHILS % (AUTO) 55 % (42-75); PLATELET COUNT 225 10^3/uL (130-400); WHITE BLOOD COUNT 9.3 10^3/uL (4.3-11.0)
[2020-10-05 05:20] LABS: ALBUMIN 3.3 GM/DL (3.2-4.5); CHLORIDE 108 MMOL/L (98-107); POTASSIUM 3.8 MMOL/L (3.6-5.0); SODIUM 139 MMOL/L (135-145)
[2020-10-05 05:22] LABS: CALCIUM 8.9 MG/DL (8.5-10.1)
[2020-10-05 05:23] LABS: GLUCOSE 103 MG/DL (70-105); TOTAL PROTEIN 7.1 GM/DL (6.4-8.2)
[2020-10-05 05:24] LABS: CARBON DIOXIDE 19 MMOL/L (21-32)
[2020-10-05 05:26] LABS: ALKALINE PHOSPHATASE 88 U/L (40-136); CREATININE SERUM 0.75 MG/DL (0.60-1.30); GFR ESTIMATED > 60
[2020-10-05 05:27] LABS: BUN/CREATININE RATIO 15
[2020-10-05 05:29] LABS: ALANINE AMINOTRANSFERASE 19 U/L (0-55)
--- NOTE | 2020-10-05 06:21 | Progress Note - Hospitalist ---
Subjective HPI/CC On Admission Date Seen by Provider: Oct 05, 2020 Objective Exam Vital Signs Vital Signs Date Time Temp Pulse Resp B/P (MAP) Pulse Ox O2 Delivery O2 Flow Rate FiO2 10/05/20 12:15 36.4 83 16 142/100 (114) 95 Room Air Capillary Refill : Less Than 3 Seconds Results/Procedures Lab Laboratory Tests 10/05/20 04:42 Patient resulted labs reviewed. JOSE ALEJANDRO NOGUEIRA DO Oct 05, 2020 06:21
[2020-10-05] MEDS: NS IV 1000 ML 1,000 ML IV SCH (06:22)
[2020-10-05] MEDS ORDERED: LEVOTHYROXINE 125 MCG (LEVOTHROID) TABLET PO SCH (06:30)
[2020-10-05 07:44] VITALS: BP 124/80
[2020-10-05] MEDS ORDERED: amLODIPine 5 MG (NORVASC) TAB PO SCH (09:00)
[2020-10-05] MEDS: ASPIRIN 325 MG (5 GR) TABLET PEG SCH (09:14)
[2020-10-05] MEDS: meTOprolol TARTRATE 50 MG (LOPRESSOR) TAB PO SCH (09:14)
[2020-10-05] MEDS: CLOPIDOGREL 75 MG (PLAVIX) TABLET PEG SCH (09:14)
--- NOTE | 2020-10-05 11:51 | Cardiology Progress Note ---
Cardiology Progess Note Progress Date Seen by Provider: Oct 05, 2020 Time Seen by Provider: 11:49 We are seeing her due to atrial fibrillation and cerebrovascular accident. She had some slight left hand numbness again this morning. She thinks she may have just been laying on top of her arm. She denies any other recurrent neurologic complaints. She denies any chest pain, dyspnea, palpitations, syncope, or ankle edema. She is anxious to go home. Focused Exam Respiratory: Lungs Clear, Normal Breath Sounds, No Respiratory Distress Cardiovascular: No Edema, No Gallop, No JVD, No Murmur, Normal Peripheral Pulses, Irregularly Irregular Skin: normal color, warm/dry A/P-Cardiology Assessment/Plan Plan See below. Diagnosis/Problems Diagnosis/Problems (1) Persistent atrial fibrillation Assessment & Plan: She remains in atrial fibrillation. She is now just about 48 hours from the initial neurologic complaints. I recommend she start on apixaban. The aspirin and clopidogrel should be discontinued. She will remain on beta-lauro for rate control. I will plan to see her in the office in approximately 1 month. If she remains in atrial fibrillation at that time, then I will plan to have her undergo a cardioversion. I will also have her undergo a 30-day event monitor to see if she is going in and out of atrial fibrillation. (2) Acute ischemic stroke Status: Acute Assessment & Plan: Most likely related to the atrial fibrillation. We will adjust her anticoagulation as above. She has been placed on moderate dose statin medication. (3) Essential hypertension Assessment & Plan: Blood pressures have been reasonably controlled while here in the hospital. She should continue the present treatment. (4) Mixed hyperlipidemia Assessment & Plan: In light of the acute stroke, her statin medication has been adjusted. She should be discharged home with the atorvastatin and stop simvastatin. (5) Obesity Assessment & Plan: She needs to continue with lifestyle modification including exercise, diet and weight loss. AYSE MCGRAW JR, MD Oct 05, 2020 11:51
[2020-10-05 12:15] VITALS: BP 142/100
[2020-10-05] MEDS ORDERED: APIX5TAB PO (12:17)
[2020-10-05] MEDS ORDERED: ATOR80TA76 PO (12:17)
[2020-10-05] MEDS ORDERED: CLOP75TA28 PEG (12:17)
[2020-10-05] MEDS ORDERED: ASPI-808 PO (12:17)
[2020-10-05] MEDS ORDERED: CEFD300C3 PO (12:18)
--- NOTE | 2020-10-05 12:18 | Discharge Summary ---
Discharge Summary Hospital Course Was the Problem List Reviewed?: Yes Problems/Dx: (1) Persistent atrial fibrillation (2) Acute ischemic stroke Status: Acute (3) Essential hypertension (4) Mixed hyperlipidemia (5) Obesity Hospital Course Date of Admission: Oct 04, 2020 at 11:08 Admission Diagnosis : Family Physician/Provider: Tip Stallworth MD Date of Discharge: 10/05/20 Discharge Diagnosis: CVA, left thumb numbness residual, AF Hospital Course: Patient had a brief hospital course she was admitted for concern of stroke. Atrial fibrillation suspected and Eliquis was started. Event monitor was placed by cardiology. CT scan was negative but MRI revealed small CVA. PT and OT initiated no recommendations for inpatient rehab she was discharged in improved condition. Labs and Pending Lab Test: Laboratory Tests 10/05/20 04:42: White Blood Count 9.3, Red Blood Count 5.39H, Hemoglobin 16.0, Hematocrit 48, Mean Corpuscular Volume 89, Mean Corpuscular Hemoglobin 30, Mean Corpuscular Hemoglobin Concent 33, Red Cell Distribution Width 13.1, Platelet Count 225, Mean Platelet Volume 10.5, Immature Granulocyte % (Auto) 0, Neutrophils (%) (Auto) 55, Lymphocytes (%) (Auto) 34, Monocytes (%) (Auto) 7, Eosinophils (%) (Auto) 3, Basophils (%) (Auto) 1, Neutrophils # (Auto) 5.2, Lymphocytes # (Auto) 3.2, Monocytes # (Auto) 0.7, Eosinophils # (Auto) 0.2, Basophils # (Auto) 0.1, Immature Granulocyte # (Auto) 0.0, Sodium Level 139, Potassium Level 3.8, Chloride Level 108H, Carbon Dioxide Level 19L, Anion Gap 12, Blood Urea Nitrogen 11, Creatinine 0.75, Estimat Glomerular Filtration Rate > 60, BUN/Creatinine Ratio 15, Glucose Level 103, Calcium Level 8.9, Corrected Calcium 9.5, Total Bilirubin 1.0, Aspartate Amino Transf (AST/SGOT) 22, Alanine Aminotransferase (ALT/SGPT) 19, Alkaline Phosphatase 88, Total Protein 7.1, Albumin 3.3 Home Meds Active Aspirin 325 Mg Tablet 325 Mg PO DAILY Atorvastatin Calcium 80 Mg Tablet 80 Mg PO HS Clopidogrel (Clopidogrel Bisulfate) 75 Mg Tablet 75 Mg PEG DAILY Eliquis (Apixaban) 5 Mg Tablet 5 Mg PO BID Reported Fish Oil 1,200 mg Fish Oil (Fish Oil/Dha/Epa) 1 Each Capsule 1 Each PO DAILY Calcium (Calcium Carbonate) 500 Mg Tablet 500 Mg PO DAILY Metoprolol Tartrate 50 Mg Tablet 50 Mg PO BID Amlodipine Besylate 5 Mg Tablet 5 Mg PO DAILY Euthyrox (Levothyroxine Sodium) 125 Mcg Tablet 125 Mcg PO DAILY Assessment/Pt Instructions [facility] in 1 week Discharge Planning: <30 minutes discharge planning Discharge Instructions Discharge Diet: No Restrictions Activity as Tolerated: Yes Discharge Physical Examination Vital Signs Vital Signs Date Time Temp Pulse Resp B/P (MAP) Pulse Ox O2 Delivery O2 Flow Rate FiO2 10/05/20 12:15 36.4 83 16 142/100 (114) 95 Room Air General Appearance: No Apparent Distress, WD/WN Respiratory: Chest Non Tender, Lungs Clear, Normal Breath Sounds, No Accessory Muscle Use, No Respiratory Distress Cardiovascular: Regular Rate, Rhythm, No Edema, No Gallop, No JVD, No Murmur, Normal Peripheral Pulses Neurologic/Psychiatric: Alert, Oriented x3, No Motor/Sensory Deficits, Normal Mood/Affect Allergies: Coded Allergies: No Known Drug Allergies (Unverified , 03/24/15) Discharge Summary Date of Admission Oct 04, 2020 at 11:08 Date of Discharge Discharge Date: Oct 05, 2020 Discharge Diagnosis (1) Persistent atrial fibrillation (2) Acute ischemic stroke Status: Acute (3) Essential hypertension (4) Mixed hyperlipidemia (5) Obesity JOSE ALEJANDRO NOGUEIRA DO Oct 05, 2020 12:18
[2020-10-05] MEDS ORDERED: APIXABAN 5 MG (ELIQUIS) TABLET PO SCH (21:00)
== END 2020-10-05 12:55 | disposition home or self-care (01) | DRG 65 ==
LOC: EDUNIT# 21:10 → ER FS 21:11 → ICU 10-04 00:55 → OBSVTOIN 10-04 11:08 → CSD 10-04 18:55
PROVIDERS: ADMIT Family Medicine; ATTEND Family Medicine
DX: I63.9 Cerebral infarction, unspecified (principal); I48.19 Other persistent atrial fibrillation; N30.00 Acute cystitis without hematuria; R29.701 NIHSS score 1; I10 Essential (primary) hypertension; E66.9 Obesity, unspecified; E78.00 Pure hypercholesterolemia, unspecified; E03.9 Hypothyroidism, unspecified; Z79.82 Long term (current) use of aspirin; Z68.37 Body mass index [BMI] 37.0-37.9, adult
CPT/HCPCS: 36415; 70450; 70496; 70498; 70551; 71045; 80053; 80061; 81000; 82947; 84484; 85007; 85025; 85027; 85610; 85730; 87088; 93005; 93041; 93306

== ENCOUNTER 2020-10-05 13:15 | Outpatient (RCR) | payer MEDICARE, OTHER ==
[~2020-10-05 13:15] MED LIST changes: +AMLO-250 PO; +APIX5TAB PO; +ASPI-1238 PO; +ASPI-808 PO; +ATOR80TA76 PO; +CALC-823 PO; +CEFD300C3 PO; +CLOP75TA28 PEG; +FISH1CAP15 PO; +LEVO-131 PO; +METO50TA15 PO; +SIMV20TA26 PO
--- NOTE | 2020-11-06 12:42 | 30 Day Event Recorder ---
30-DAY EVENT RECORDER 30-DAY MOBILE CARDIAC OUTPATIENT TELEMETRY DATE OF PROCEDURE: 10/05/2020-11/03/2020. INDICATION: Persistent atrial fibrillation. PROCEDURE: A 30-day mobile cardiac outpatient telemetry was obtained for a total of 30 days. The study quality is adequate. RESULTS: 1. Baseline sinus rhythm with an average heart rate of 61 bpm, ranging from 49- 150 bpm with 41 episodes of paroxysmal atrial fibrillation with a longest single duration of 1 hour and 53 minutes and an average heart rate of 82 bpm while in atrial fibrillation with a total burden of 2%. 2. There were rare, isolated premature supraventricular and premature ventricular complexes each representing less than 1% of the total recording time. 3. There was one 3.4-second pause that occurred at 02:20 on October 06 when the patient converted from atrial fibrillation to sinus rhythm. 4. There were 2 patient triggered events that correlated to sinus rhythm and sinus bradycardia with heart rates ranging from 49-65 bpm and during the second event, there was an isolated premature ventricular complex. IMPRESSION: 1. This is a 30-day mobile cardiac outpatient telemetry report. 2. Baseline sinus rhythm with an average heart rate of 61 bpm, ranging from 49- 150 bpm with 41 episodes of paroxysmal atrial fibrillation with a longest single duration of 1 hour and 53 minutes and an average heart rate of 82 bpm while in atrial fibrillation with a total burden of 2% also with rare, isolated premature supraventricular and premature ventricular complexes each representing less than 1% of the total recording time. 3. There was one 3.4-second pause that occurred at 02:20 on October 06 when the patient converted from atrial fibrillation to sinus rhythm. 4. There were 2 patient triggered events that correlated to sinus rhythm and sinus bradycardia with heart rates ranging from 49-65 bpm and during the episode of sinus rhythm, there was an isolated premature ventricular complex. AYSE MCGRAW JR, MD Nov 06, 2020 12:41
== END 2021-01-03 | disposition home or self-care (01) ==
LOC: CARD 13:15
PROVIDERS: ATTEND Internal Medicine Cardiovascular Disease
DX: I48.19 Other persistent atrial fibrillation (principal); Z79.01 Long term (current) use of anticoagulants; I48.0 Paroxysmal atrial fibrillation

== ENCOUNTER → 2020-10-25 | Outpatient (CLI) | payer MEDICARE, OTHER ==
[~2020-10-25] VITALS: Ht 162 cm; Wt 97.0 kg
[~2020-10-25] MED LIST changes: +CATHETER FLUSH 10 ML SYR IV PRN; +REGADENOSON 0.4 MG/5 ML SYR (LEXISCAN) IV ONE
[2020-10-25 09:01] VITALS: BP 122/81
--- NOTE | 2020-10-25 16:45 | Cardiology Stress Test Report ---
Stress Test Report Date of Procedure/Referring: PCP Igor Hill Jr, MD Admitting Physician Tip Stallworth MD Indications: Paroxysmal atrial fibrillation. Baseline Blood Pressure: Blood Pressure Systolic: 122 Blood Pressure Diastolic: 81 Baseline Vitals Vital Signs Date Time Temp Pulse Resp B/P (MAP) Pulse Ox O2 Delivery O2 Flow Rate FiO2 10/25/20 09:01 75 122/81 (95) Baseline EKG: Baseline EKG: Sinus rhythm with first-degree AV block. Summary After explaining the procedure to the patient, she signed a consent and then brought to the stress nuclear laboratory. STRESS TEST PROCEDURE: This was a walking Lexiscan stress test. The patient was walked on the treadmill at a slow pace for approximately 30-60 seconds. The patient was subsequently administered 0.4 mg of intravenous regadenoson. The resting heart rate was 69 bpm and the peak heart rate was 109 bpm. The resting blood pressure was 122/81 mmHg and the minimum blood pressure was 115/68 mmHg. This represents normal heart rate and blood pressure response to regadenoson. The test was stopped due to the protocol. There was no exercise-induced chest discomfort, arrhythmias, or electrocardiogram changes during the test. NUCLEAR PROCEDURE: The patient was administered 10.9 mCi of intravenous technetium 99 M Myoview at rest for the rest images. The patient was subsequently administered 32.7 mCi of intravenous technetium 99m Myoview at peak stress for the stress images. Following an appropriate wait after each injection, imaging was obtained. The images were subsequently processed and reformatted in the usual views. Gated imaging was obtained. There was a fair amount of breast attenuation artifact noted. NUCLEAR RESULTS: There was normal myocardial perfusion in all segments, other than breast attenuation artifact, without evidence of infarction or ischemia. There was normal left ventricular chamber size with an end-diastolic volume of 47 mL and an end-systolic volume of 12 mL. The was no evidence of transient ischemic dilatation. The TID ratio was There was1.05. There was normal motion in all segments with a calculated ejection fraction of 75%. 1. Normal heart rate and blood pressure response to Lexiscan. 2. There was no chest discomfort, arrhythmias, or electrocardiogram changes during the test. 3. There was normal myocardial perfusion in all segments, other than breast attenuation artifact, without evidence of infarction or ischemia. 4. There was normal wall motion in all segments with a calculated ejection fraction of 75%. IGOR HILL JR, MD Oct 25, 2020 16:45
== END ==
LOC: CARD 07:44
PROVIDERS: ATTEND Internal Medicine Cardiovascular Disease
DX: I48.0 Paroxysmal atrial fibrillation (principal)
CPT/HCPCS: 78452; 93017; A9502

== ENCOUNTER → 2021-10-10 | Outpatient (CLI) | payer MEDICARE, OTHER ==
[~2021-10-10] MED LIST changes: -CATHETER FLUSH 10 ML SYR IV PRN; -REGADENOSON 0.4 MG/5 ML SYR (LEXISCAN) IV ONE
== END ==
LOC: CARDFS 11:44
PROVIDERS: ATTEND Internal Medicine Cardiovascular Disease
DX: I08.2 Rheumatic disorders of both aortic and tricuspid valves (principal)
CPT/HCPCS: 93306

== ENCOUNTER 2021-12-03 10:20 | Emergency (ER) | payer MEDICARE, OTHER ==
[~2021-12-03] VITALS: Ht 160 cm; Wt 88.5 kg
--- NOTE | 2021-12-03 10:37 | ED Neurological Problem ---
General Chief Complaint: Neuro-Stroke Like Symptoms Stated Complaint: LT SIDED NUMBNESS Source: patient, EMS Exam Limitations: no limitations History of Present Illness Date Seen by Provider: Dec 03, 2021 Time Seen by Provider: 10:22 Initial Comments 76-year-old female with past medical history of paroxysmal A. fib on Xarelto, hypertension, hyperlipidemia coming in via EMS from the walk-in clinic due to numbness. The patient folic her left hand was going numb Thursday night, but thought it could have been how she was sitting on the couch. The next day she continued to feel the tingling in her left hand and leg which still is intermittently happening but she still feels this way currently. Went to the clinic today and was referred to the ER. EMS reports their NIH scale is 0, glucose was 100, and vitals were unremarkable. The patient denies any chest pain, shortness of breath, abdominal pain, nausea, vomiting, diarrhea, fever, chills, headache, vision changes, voice changes, or any other concerns. She says she is eating and drinking normally. Allergies and Home Medications Allergies Coded Allergies: No Known Drug Allergies (Unverified , 03/24/15) Patient Home Medication List Home Medication List Reviewed: Yes Amlodipine Besylate (Amlodipine Besylate) 5 Mg Tablet, 5 MG PO DAILY, (Reported) Entered as Reported by: MATHEW MADRID on 10/04/20 1153 Apixaban (Eliquis) 5 Mg Tablet, 5 MG PO BID Prescribed by: JOSE ALEJANDRO NOGUEIRA on 10/05/20 1217 Aspirin (Aspirin) 325 Mg Tablet, 325 MG PO DAILY Prescribed by: JOSE ALEJANDRO NOGUEIRA on 10/05/20 1217 Aspirin (Aspirin) 81 Mg Tab.chew, 81 MG PO DAILY Prescribed by: BUNNY MICHELLE on 12/03/21 1146 Atorvastatin Calcium (Atorvastatin Calcium) 80 Mg Tablet, 80 MG PO HS Prescribed by: JOSE ALEJANDRO NOGUEIRA on 10/05/20 1217 Calcium Carbonate (Calcium) 500 Mg Tablet, 500 MG PO DAILY, (Reported) Entered as Reported by: MATHEW MADRID on 10/04/20 1153 Cefdinir (Cefdinir) 300 Mg Capsule, 300 MG PO BID Prescribed by: JOSE ALEJANDRO NOGUEIRA on 10/05/20 1218 Clopidogrel Bisulfate (Clopidogrel) 75 Mg Tablet, 75 MG PEG DAILY Prescribed by: JOSE ALEJANDRO NOGUEIRA on 10/05/20 1217 Clopidogrel Bisulfate (Plavix) 75 Mg Tablet, 75 MG PO DAILY Prescribed by: BUNNY MICHELLE on 12/03/21 1146 Fish Oil/Dha/Epa (Fish Oil 1,200 mg Fish Oil) 1 Each Capsule, 1 EACH PO DAILY, (Reported) Entered as Reported by: MATHEW MADRID on 10/04/20 1153 Levothyroxine Sodium (Euthyrox) 125 Mcg Tablet, 125 MCG PO DAILY, (Reported) Entered as Reported by: MATHEW MADRID on 10/04/20 1153 Metoprolol Tartrate (Metoprolol Tartrate) 50 Mg Tablet, 50 MG PO BID, (Reported) Entered as Reported by: MATHEW MADRID on 10/04/20 1153 Review of Systems Review of Systems Constitutional: No fever Eyes: Denies Blurred Vision Ears, Nose, Mouth, Throat: no symptoms reported Respiratory: no symptoms reported Cardiovascular: no symptoms reported Gastrointestinal: no symptoms reported Genitourinary: no symptoms reported Musculoskeletal: no symptoms reported Skin: no symptoms reported Psychiatric/Neurological: See HPI Endocrine: No Symptoms Reported Hematologic/Lymphatic: No Symptoms Reported All Other Systems Reviewed Negative Unless Noted: Yes Past Fbaoffm-Lwkhsw-Lhtzxg Hx Patient Social History Tobacco Use?: No Substance use?: No Alcohol Use?: No Seasonal Allergies Seasonal Allergies: No Past Medical History Surgeries: Yes (D&C) Appendectomy Respiratory: No Cardiac: Yes High Cholesterol, Hypertension Neurological: No Genitourinary: No Gastrointestinal: No Musculoskeletal: No Endocrine: Yes Hypothyroidsim HEENT: No Cancer: No Psychosocial: No Integumentary: No Blood Disorders: No Family Medical History No Pertinent Family Hx Physical Exam Vital Signs Vital Signs - First Documented 12/03/21 10:24 Temp 36.1 Pulse 53 Resp 14 Pulse Ox 98 O2 Delivery Room Air Capillary Refill : Height, Weight, BMI Height: 5'4" Weight: 200lbs. oz. [id number]; 36.96 BMI Method:Stated General Appearance: WD/WN, no apparent distress HEENT: PERRL/EOMI, normal ENT inspection, pharynx normal Neck: non-tender, full range of motion, supple, normal inspection Respiratory: chest non-tender, lungs clear, normal breath sounds, no respirator y distress, no accessory muscle use Cardiovascular: regular rate, rhythm, no edema, no murmur Gastrointestinal: normal bowel sounds, non tender, soft; No distended, No guarding, No rebound Back: normal inspection, no CVA tenderness, no vertebral tenderness Extremities: normal range of motion, non-tender, normal inspection, no pedal edema, no calf tenderness, normal capillary refill 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 tested, no motor/sensory deficits, alert, normal mood/affect, oriented x 3 Crainal Nerves: normal hearing, normal speech, PERRL, other (Normal visual acuity and visual alston) Coordination/Gait: normal finger to nose, normal gait, negative Romberg's sign Motor/Sensory: no motor deficit, no sensory deficit, no pronator drift Skin: normal color, warm/dry Lymphatic: no adenopathy Stroke Onset of Symptoms Date of Onset of Symptoms: Dec 01, 2021 Time of Symptom Onset: 19:00 Onset of Symptoms: Yes NIH Stroke Scale Assessment Select: Initial Level of Consciousness: 0=Alert (0), Level of Consciousness- Questions: 0=Answers both month/age (0), LOC Commands: 0=Performs both tasks (0), Gaze: Normal (0), Visual Alston: 0=No visual loss (0), Facial Movement (Facial Paresis): 0=Normal symmetrical mnt (0), Motor Function-Arms Right: 0=No drift (0), Motor Function-Arms Left: 0=No drift (0), Motor Function-Legs Right: 0=No drift (0), Motor Function-Legs Left: 0=No drift (0), Limb Ataxia: 0=Absent (0), Sensory: 0=Normal:no loss (0), Best Language: 0=No aphasia (0), Dysarthria: 0=Normal (0), Extinction & Inattention: 0=No abnormality (0), Total: 0 Stroke Thrombolytic Exclusion Age 18 or Over: Yes Oral Anticoagulants: Yes TPA Contraindication: Yes (symptoms started 2 days ago) IV - TPa Received IV - TPa Procedure Performed?: No Progress/Results/Core Measures Results/Orders Lab Results Laboratory Tests Test 12/03/21 10:25 12/03/21 11:10 Range/Units White Blood Count 8.0 4.3-11.0 10^3/uL Red Blood Count 4.85 3.80-5.11 10^6/uL Hemoglobin 14.4 11.5-16.0 g/dL Hematocrit 42 35-52 % Mean Corpuscular Volume 86 80-99 fL Mean Corpuscular Hemoglobin 30 25-34 pg Mean Corpuscular Hemoglobin Concent 34 32-36 g/dL Red Cell Distribution Width 12.8 10.0-14.5 % Platelet Count 201 130-400 10^3/uL Mean Platelet Volume 10.2 9.0-12.2 fL Immature Granulocyte % (Auto) 0 % Neutrophils (%) (Auto) 48 42-75 % Lymphocytes (%) (Auto) 41 12-44 % Monocytes (%) (Auto) 8 0-12 % Eosinophils (%) (Auto) 3 0-10 % Basophils (%) (Auto) 0 0-10 % Neutrophils # (Auto) 3.8 1.8-7.8 10^3/uL Lymphocytes # (Auto) 3.3 1.0-4.0 10^3/uL Monocytes # (Auto) 0.7 0.0-1.0 10^3/uL Eosinophils # (Auto) 0.2 0.0-0.3 10^3/uL Basophils # (Auto) 0.0 0.0-0.1 10^3/uL Immature Granulocyte # (Auto) 0.0 0.0-0.1 10^3/uL Prothrombin Time 23.9 H 12.2-14.7 SEC INR Comment 2.1 H 0.8-1.4 Activated Partial Thromboplast Time 33 24-35 SEC Sodium Level 140 135-145 MMOL/L Potassium Level 3.6 3.6-5.0 MMOL/L Chloride Level 105 98-107 MMOL/L Carbon Dioxide Level 24 21-32 MMOL/L Anion Gap 11 5-14 MMOL/L Blood Urea Nitrogen 13 7-18 MG/DL Creatinine 0.87 0.60-1.30 MG/DL Estimat Glomerular Filtration Rate 69 BUN/Creatinine Ratio 15 Glucose Level 104 70-105 MG/DL Glucometer 102 70-110 MG/DL Calcium Level 9.3 8.5-10.1 MG/DL Corrected Calcium 9.5 8.5-10.1 MG/DL Total Bilirubin 1.4 H 0.1-1.0 MG/DL Aspartate Amino Transf (AST/SGOT) 35 H 5-34 U/L Alanine Aminotransferase (ALT/SGPT) 29 0-55 U/L Alkaline Phosphatase 117 40-136 U/L Troponin I < 0.30 <0.30 NG/ML Total Protein 7.2 6.4-8.2 GM/DL Albumin 3.8 3.2-4.5 GM/DL Urine Color YELLOW Urine Clarity CLEAR Urine pH 7.5 5-9 Urine Specific Merrill <=1.005 1.016-1.022 Urine Protein NEGATIVE NEGATIVE Urine Glucose (UA) NEGATIVE NEGATIVE Urine Ketones NEGATIVE NEGATIVE Urine Nitrite NEGATIVE NEGATIVE Urine Bilirubin NEGATIVE NEGATIVE Urine Urobilinogen 0.2 < = 1.0 MG/DL Urine Leukocyte Esterase NEGATIVE NEGATIVE Urine RBC (Auto) NEGATIVE NEGATIVE Urine RBC NONE /HPF Urine WBC 0-2 /HPF Urine Squamous Epithelial Cells 0-2 /HPF Urine Crystals NONE /LPF Urine Bacteria NEGATIVE /HPF Urine Casts NONE /LPF Urine Mucus NEGATIVE /LPF Urine Culture Indicated NO My Orders Orders - BUNNY MICHELLE MD Cbc With Automated Diff (12/03/21 10:32) Protime With Inr (12/03/21 10:32) Partial Thromboplastin Time (12/03/21 10:32) Comprehensive Metabolic Panel (12/03/21 10:32) Troponin I Fs (12/03/21 10:32) Ua Culture If Indicated (12/03/21 10:32) Chest 1 View Ap/Pa Only (12/03/21 10:32) Ekg Tracing (12/03/21 10:32) Accucheck Stat ONCE (12/03/21 10:32) Ed Iv/Invasive Line Start (12/03/21 10:32) Ed Iv/Invasive Line Start (12/03/21 10:32) Vital Signs Stroke Patient Q15M (12/03/21 10:32) Ct Head Wo-R/O Stroke (12/03/21 10:32) O2 (12/03/21 10:32) Intake & Output 06,14,22 (12/03/21 10:32) Monitor-Rhythm Ecg Trace Only (12/03/21 10:32) Dysphagia Screening Tool Q10MX1 (12/03/21 10:32) Clopidogrel Tablet (Plavix Tablet) (12/03/21 11:45) Aspirin Chewable Tablet (Baby Aspirin Ch (12/03/21 11:45) Vital Signs/I&O 12/03/21 10:24 Temp 36.1 Pulse 53 Resp 14 B/P (MAP) Pulse Ox 98 O2 Delivery Room Air Progress Progress Note : Progress Note 76-year-old female with above history coming in due to left sided extremity tingling. ABCs were intact and vitals were stable on presentation. Her heart rate did range from the 40's to 60's on the monitor here. Her blood pressure was never low and she was never symptomatic here from it. She confirms her heart rate has been low for years with no real concern. I did review her chart and found an EKG from 2014 with her heart rate in the 40's as well. She likely has had asymptomatic bradycardia for many years. Her neuro exam is completely normal here with no neurologic deficits and an NIH stroke scale of 0. Stroke alert was called on arrival still due to her complaints, CT head without acute abnormalities. Lab work essentially unremarkable. Glucose of 100. I reviewed her chart from September 2020 in which she was admitted to the hospital and did have a very small punctate stroke on MRI for similar complaint. Since then she has had the full work-up including evaluation of her carotid vasculature. She is on atorvastatin and anticoagulation as well as rate control for her paroxysmal A. fib. There is not a lot left to do as far as risk factors to modify her risk from having a large stroke. I called and discussed the case with Dr. Nogueira who would be the admitting physician for [facility] today, and we will start the patient on dual antiplatelet therapy with low-dose aspirin as well as Plavix 75 mg daily for the next 3 weeks. We will get an MRI brain as an outpatient and have her follow-up with neurology as an outpatient as well. I instructed the patient if she has worsening or new symptoms she is to present immediately to the ER. Initial ECG Impression Date: Dec 03, 2021 Initial ECG Impression Time: 10:53 Initial ECG Rate: 44 Initial ECG Rhythm: S.Estuardo Comment Narrow QRS, normal axis, no significant ST changes or T wave abnormalities Diagnostic Imaging Diagonstic Imaging: Xray (chest), CT Plain Films/CT/US/NM/MRI: head Comments NAME: MINNIE GONSALVES [facility] REC#: [id number] PT STATUS: REG ER : 1945 PHYSICIAN: BUNNY MICHELLE MD ADMIT DATE: 12/03/21/ER FS Draft Date of Exam:12/03/21 CT HEAD WO-R/O STROKE PROCEDURE: CT head wo r/o stroke. TECHNIQUE: Multiple contiguous axial images were obtained through the brain without the use of intravenous contrast. Auto Exposure Controls were utilized during the CT exam to meet ALARA standards for radiation dose reduction. INDICATION: Left-sided numbness. COMPARISON: MRI brain of 09/02/[address] head of 10/03/2020. FINDINGS: No intracranial hyperdense hemorrhage or space-occupying mass. No hydrocephalus or midline shift. Barnett-white matter differentiation is preserved. Mild hypoattenuation in the periventricular white matter is most compatible chronic microvascular ischemic change. No acute calvarial abnormality. Paranasal sinuses and mastoid air cells are clear. IMPRESSION: No acute intracranial hemorrhage or features of large territorial infarct. Dictated on workstation # [id number] Dict: 12/03/21 1108 Trans: 12/03/21 1116 [id number] Interpreted by: ISMAEL BROWN MD Electronically signed by: NAME: MINNIE GONSALVES [facility] REC#: [id number] PT STATUS: REG ER : 1945 PHYSICIAN: BUNNY MICHELLE MD ADMIT DATE: 12/03/21/ER FS Draft Date of Exam:12/03/21 CHEST 1 VIEW AP/PA ONLY INDICATION: Left-sided numbness. COMPARISON: Study compared to 10/03/2020. FINDINGS: There is no focal consolidation. The heart size and pulmonary vascularity are within normal limits. There is no failure pattern, effusion, or pneumothorax. IMPRESSION: No acute-appearing abnormality. Dictated on workstation # [id number] Dict: 12/03/21 1056 Trans: 12/03/21 1121 [id number] Interpreted by: DUNIA LAWRENCE Electronically signed by: Sandra Pedro Primary Impression: TIA (transient ischemic attack) Disposition: 01 HOME, SELF-CARE Condition: Stable Departure-Patient Inst. Decision time for Depature: 11:44 Referrals: DAY STALLWORTH MD (PCP) Primary Care Physician Patient Instructions: Transient Ischemic Attack ED Add. Discharge Instructions: It is possible you had another mini stroke or TIA. Since you are already on the medicines that you essentially need to be on, there is not a real benefit in being admitted to the hospital right now. We will add 2 different other medicines, aspirin 81 mg which is 1 baby aspirin, and clopidogrel 75 mg a day. You will receive these medicines in the ER, so you can start taking them again tomorrow. He will take them for 3 weeks. Follow-up with Dr. Stallworth to get a referral for a neurologist for follow-up. You will need an MRI of your brain sometime in the next couple days as well. Scripts Clopidogrel Bisulfate (Plavix) 75 Mg Tablet 75 MG PO DAILY for 21 Days, #21 TAB Prov: BUNNY MICHELLE MD 12/03/21 Aspirin (Aspirin) 81 Mg Tab.chew 81 MG PO DAILY for 21 Days, #21 TAB Prov: BUNNY MICHELLE MD 12/03/21 BUNNY MICHELLE MD Dec 03, 2021 10:37
[2021-12-03 10:39] LABS: BASOPHILS % (AUTO) 0 % (0-10); EOSINOPHILS # (AUTO) 0.2 10^3/uL (0.0-0.3); EOSINOPHILS % (AUTO) 3 % (0-10); HEMATOCRIT 42 % (35-52); HEMOGLOBIN 14.4 g/dL (11.5-16.0); LYMPHOCYTES # (AUTO) 3.3 10^3/uL (1.0-4.0); LYMPHOCYTES % (AUTO) 41 % (12-44); MEAN CORPUSCULAR HEMOGLOBIN 30 pg (25-34); MEAN CORPUSCULAR HGB CONC 34 g/dL (32-36); MEAN CORPUSCULAR VOLUME 86 fL (80-99); MEAN PLATELET VOLUME 10.2 fL (9.0-12.2); MONOCYTES # (AUTO) 0.7 10^3/uL (0.0-1.0); MONOCYTES % (AUTO) 8 % (0-12); NEUTROPHILS # (AUTO) 3.8 10^3/uL (1.8-7.8); NEUTROPHILS % (AUTO) 48 % (42-75); PLATELET COUNT 201 10^3/uL (130-400)
[2021-12-03 10:51] LABS: INR 2.1 (0.8-1.4); PROTHROMBIN TIME PATIENT 23.9 SEC (12.2-14.7)
[2021-12-03 11:14] LABS: ALANINE AMINOTRANSFERASE 29 U/L (0-55); ALKALINE PHOSPHATASE 117 U/L (40-136); BILIRUBIN,TOTAL 1.4 MG/DL (0.1-1.0); BUN/CREATININE RATIO 15; CALCIUM 9.3 MG/DL (8.5-10.1); CARBON DIOXIDE 24 MMOL/L (21-32); CHLORIDE 105 MMOL/L (98-107); CREATININE SERUM 0.87 MG/DL (0.60-1.30); GFR ESTIMATED 69; GLUCOSE 104 MG/DL (70-105); POTASSIUM 3.6 MMOL/L (3.6-5.0); SODIUM 140 MMOL/L (135-145)
[2021-12-03 11:15] LABS: ALBUMIN 3.8 GM/DL (3.2-4.5); TOTAL PROTEIN 7.2 GM/DL (6.4-8.2)
--- NOTE | 2021-12-03 11:17 | Diagnostic Imaging Report ---
PROCEDURE: CT head wo r/o stroke. TECHNIQUE: Multiple contiguous axial images were obtained through the brain without the use of intravenous contrast. Auto Exposure Controls were utilized during the CT exam to meet ALARA standards for radiation dose reduction. INDICATION: Left-sided numbness. COMPARISON: MRI brain of 09/02/[address] head of 10/03/2020. FINDINGS: No intracranial hyperdense hemorrhage or space-occupying mass. No hydrocephalus or midline shift. Barnett-white matter differentiation is preserved. Mild hypoattenuation in the periventricular white matter is most compatible chronic microvascular ischemic change. No acute calvarial abnormality. Paranasal sinuses and mastoid air cells are clear. IMPRESSION: No acute intracranial hemorrhage or features of large territorial infarct. Dictated by: Dictated on workstation # [id number]
[2021-12-03 11:19] LABS: BILIRUBIN,URINE NEGATIVE (NEGATIVE); CLARITY,URINE CLEAR; COLOR,URINE YELLOW; GLUCOSE, URINE (UA) NEGATIVE (NEGATIVE); KETONES,URINE NEGATIVE (NEGATIVE); LEUKOCYTE ESTERASE ,URINE NEGATIVE (NEGATIVE); NITRITE,URINE NEGATIVE (NEGATIVE); PH,URINE 7.5 (5-9); PROTEIN,URINE NEGATIVE (NEGATIVE)
--- NOTE | 2021-12-03 11:22 | Diagnostic Imaging Report ---
INDICATION: Left-sided numbness. COMPARISON: Study compared to 10/03/2020. FINDINGS: There is no focal consolidation. The heart size and pulmonary vascularity are within normal limits. There is no failure pattern, effusion, or pneumothorax. IMPRESSION: No acute-appearing abnormality. Dictated by: Dictated on workstation # [id number]
[2021-12-03 11:28] LABS: BACTERIA,URINE NEGATIVE /HPF; SQUAMOUS EPITHELIAL CELL,UR 0-2 /HPF; WBC,URINE 0-2 /HPF
[2021-12-03] MEDS ORDERED: ASPIRIN 81 MG CHEW (CHILDREN'S ASA) PO ONE (11:45)
[2021-12-03] MEDS ORDERED: CLOPIDOGREL 75 MG (PLAVIX) TABLET PO ONE (11:45)
[2021-12-03] MEDS ORDERED: CLOP75TA69 PO (11:46)
[2021-12-03] MEDS ORDERED: ASPI-999 PO (11:46)
[2021-12-03 12:05] VITALS: BP 128/71
== END 2021-12-03 12:10 | disposition home or self-care (01) ==
LOC: EDUNIT# 10:20 → ER FS 10:21
DX: G45.9 Transient cerebral ischemic attack, unspecified (principal); I48.0 Paroxysmal atrial fibrillation; E78.5 Hyperlipidemia, unspecified; Z79.01 Long term (current) use of anticoagulants
CPT/HCPCS: 36415; 70450; 71045; 80053; 81000; 82947; 84484; 85025; 85610; 85730; 93005; 93041

== ENCOUNTER → 2021-12-11 | Outpatient (CLI) | payer MEDICARE, OTHER ==
[~2021-12-11] MED LIST changes: +CLOP75TA69 PO
--- NOTE | 2021-12-11 09:51 | Diagnostic Imaging Report ---
PROCEDURE: MR imaging of the brain without contrast. TECHNIQUE: Multiplanar, multisequence MR imaging of the brain was performed without contrast. INDICATION: Left-sided numbness. Correlation is made with prior MRI brain from 10/04/2020. No diffusion restriction is identified to suggest acute ischemia. The normal expected flow-voids within the carotid siphons are seen. Periventricular and subcortical white matter changes are noted consistent with chronic microvascular ischemia. There is no midline shift. No acute intra-axial or extra-axial hemorrhage is detected. Corpus callosum is unremarkable. The sella and parasellar structures are unremarkable. Multicystic appearance to the right parotid gland is again noted. IMPRESSION: Chronic changes. No acute intracranial process is detected. Dictated by: Dictated on workstation # [id number]
== END ==
LOC: RAD 08:44
PROVIDERS: ATTEND Emergency Medicine
DX: R20.0 Anesthesia of skin (principal)
CPT/HCPCS: 70551

== ENCOUNTER → 2022-01-23 | Day surgery (SDC) | payer MEDICARE, OTHER ==
[~2022-01-23] VITALS: Ht 162.5 cm; Wt 89.8 kg
[~2022-01-23] MED LIST changes: +LIDOCAINE 2% 20 ML (XYLOCAINE) VIAL ONE
[2022-01-23 09:38] VITALS: BP 158/84
--- NOTE | 2022-01-23 11:35 | Cardiac Procedure Note-KU ---
Cardiology Procedures Date of Procedure 01/23/22 IMPLANTABLE LOOP RECORDER INSERTION INDICATION: Paroxysmal atrial fibrillation and cerebrovascular accident. PROCEDURE: After informed consent and in the fasting state, the left pectoral area was prepped and draped in the usual sterile fashion. I subsequently infiltrated the skin and subcutaneous tissues in the fourth intercostal space in the midclavicular line with 2% lidocaine. A lisa was then made in the skin using the insertion tool. A [employer]onic LINQ II (serial #[id number]) was then inserted using the insertion tool. Dermabond was applied to the incision and a sterile dressing was applied. IMPRESSION: 1. Status post implantable loop recorder insertion with a [employer]onic LINQ II (serial #[id number]). Certain portions of this document may have been dictated utilizing voice recognition technology. Inherent to this technology, typographical and grammatical errors may exist. As much as I am diligent to identify and correct these mistakes, some errors may remain in the document. AYSE MCGRAW JR, MD Jan 23, 2022 11:35
== END | disposition home or self-care (01) ==
LOC: CATH 09:21
PROVIDERS: ATTEND Internal Medicine Cardiovascular Disease
DX: I48.0 Paroxysmal atrial fibrillation (principal); I35.1 Nonrheumatic aortic (valve) insufficiency; I77.810 Thoracic aortic ectasia; E66.9 Obesity, unspecified; Z79.01 Long term (current) use of anticoagulants; Z86.73 Personal history of transient ischemic attack (TIA), and cerebral infarction without residual deficits; Z68.34 Body mass index [BMI] 34.0-34.9, adult
CPT/HCPCS: 33285; C1764

== ENCOUNTER → 2022-10-16 | Outpatient (CLI) | payer MEDICARE, OTHER ==
[~2022-10-16] MED LIST changes: +CLOP-31 PO; -CLOP75TA69 PO; -LIDOCAINE 2% 20 ML (XYLOCAINE) VIAL ONE
== END ==
LOC: CARD 09:04
PROVIDERS: ATTEND Internal Medicine Cardiovascular Disease
DX: I08.3 Combined rheumatic disorders of mitral, aortic and tricuspid valves (principal); I10 Essential (primary) hypertension; I25.10 Atherosclerotic heart disease of native coronary artery without angina pectoris
CPT/HCPCS: 93306

== ENCOUNTER → 2022-12-22 | Outpatient (CLI) | payer MEDICARE, OTHER ==
[~2022-12-22] VITALS: Ht 162 cm; Wt 88.0 kg
[~2022-12-22] MED LIST changes: +CATHETER FLUSH 10 ML SYR IVP PRN
[2022-12-22 09:38] VITALS: BP 157/88
--- NOTE | 2022-12-22 11:56 | Cardiology Stress Test Report ---
Stress Test Report Date of Procedure/Referring: Date of Procedure: Dec 22, 2022 PCP Tip Stallworth MD Admitting Physician Admitting Physician: Attending Physician: Amy Gilliland MD Indications: a fib Baseline Heart Rate: 72 Baseline Blood Pressure: Blood Pressure Systolic: 157 Blood Pressure Diastolic: 88 Vital Signs Date Time Temp Pulse Resp B/P (MAP) Pulse Ox O2 Delivery O2 Flow Rate FiO2 12/22/22 09:38 72 157/88 (111) 99 Baseline Vital Signs Vital Signs Date Time Temp Pulse Resp B/P (MAP) Pulse Ox O2 Delivery O2 Flow Rate FiO2 12/22/22 09:38 72 157/88 (111) 99 Baseline EKG: Baseline EKG: a fib Summary: After explaining the procedure and details to the patient, she signed the consent and was brought to the stress nuclear laboratory. Patient exercised on standard Shabbir protocol, EKG, heart rate and blood pressure were monitored continuously, resting and stress doses of radio tracer were injected, imaging was acquired and reviewed in the short axis, horizontal long axis and vertical long axis views Patient was able to exercise for a total of 3 minutes on Shabbir protocol, METs 4.6 Maximum heart rate 129 Maximum blood pressure 192/87 Stress EKG, Minimal nondiagnostic changes Recovery EKG, Return to baseline TID: 1.02 SSS: 7 SDS: 4 EF: 61 Conclusion: Fair exercise tolerance for 3 minutes on standard Shabbir protocol 4.6 METS achieving 89% of maximal expected heart rate Baseline atrial fibrillation persisted during test Nondiagnostic EKG changes with exercise return to baseline during recovery Reversible ischemia involving the anterior wall and anterior lateral wall Normal left ventricular size, ejection fraction 61% Copy Copies To 1: TIP STALLWORTH MD, BASHAR J MD Dec 22, 2022 11:56
== END ==
LOC: CARD 07:23
PROVIDERS: ATTEND Internal Medicine Cardiovascular Disease
DX: I48.0 Paroxysmal atrial fibrillation (principal)
CPT/HCPCS: 78452; 93017; A9502

== ENCOUNTER 2022-12-26 07:28 | Day surgery (SDC) | payer MEDICARE, OTHER ==
[~2022-12-26] VITALS: Ht 162.6 cm; Wt 89.8 kg
[2022-12-26] VITALS (8 sets, daily range): BP systolic 115–148; BP diastolic 70–86
[~2022-12-26 07:28] MED LIST changes: -CATHETER FLUSH 10 ML SYR IVP PRN
[2022-12-26] MEDS ORDERED: LIDOCAINE 1% INJ 20 ML VIAL ONE (07:52)
[2022-12-26] MEDS ORDERED: NS IV 1000 ML 1,000 ML ONE (07:52)
[2022-12-26] MEDS ORDERED: HEParin (CATH LAB) 2,000 ML IV ONE (07:52)
[2022-12-26] MEDS ORDERED: NS IV 1000 ML 1,000 ML IV SCH ×2 (08:00→09:45)
[2022-12-26 08:15] LABS: HEMATOCRIT 47 % (35-52); HEMOGLOBIN 16.1 g/dL (11.5-16.0); MEAN CORPUSCULAR HEMOGLOBIN 31 pg (25-34); MEAN CORPUSCULAR HGB CONC 34 g/dL (32-36); MEAN CORPUSCULAR VOLUME 91 fL (80-99); PLATELET COUNT 211 10^3/uL (130-400); WHITE BLOOD COUNT 8.7 10^3/uL (4.3-11.0)
[2022-12-26 08:27] LABS: INR 1.3 (0.8-1.4); PROTHROMBIN TIME PATIENT 16.7 SEC (12.2-14.7)
[2022-12-26 08:36] LABS: ALBUMIN 3.7 GM/DL (3.2-4.5); BILIRUBIN,TOTAL 1.2 MG/DL (0.1-1.0); CALCIUM 9.4 MG/DL (8.5-10.1); POTASSIUM 3.7 MMOL/L (3.6-5.0); TOTAL PROTEIN 7.7 GM/DL (6.4-8.2)
--- NOTE | 2022-12-26 08:38 | Diagnostic Imaging Report ---
INDICATION: Failed treadmill, substernal chest pain. Portable chest 8:12 AM There is a loop recorder projecting over the left lower chest. Heart size and pulmonary vascularity are normal. Lungs are clear. There are no effusions or pneumothoraces. IMPRESSION: No acute abnormalities in the chest. Dictated by: Dictated on workstation # [id number]
[2022-12-26] MEDS ORDERED: FLEC50TA PO (08:48)
[2022-12-26] MEDS ORDERED: RIVA20TA PO (08:48)
[2022-12-26] MEDS ORDERED: LEVO100C4 PO (08:48)
[2022-12-26] MEDS ORDERED: METO-333 PO (08:48)
[2022-12-26] MEDS ORDERED: MULT-974 PO (08:48)
[2022-12-26] MEDS ORDERED: fentaNYL INJECTION 100 MCG/2 ML VIAL ONE (08:52)
[2022-12-26] MEDS ORDERED: MIDAZOLAM INJ 5 MG/5 ML VIAL ONE (08:52)
[2022-12-26] MEDS ORDERED: HEParin 1000 UNIT/ML (10ML VIAL) FOR BOLUS ONE (08:52)
[2022-12-26] MEDS ORDERED: VERAPAMIL 5 MG/2 ML (CALAN) VIAL IV ONE (08:52)
[2022-12-26] MEDS ORDERED: NITRO DRIP 25000 MCG/D5W 250 ML IV ONE (08:53)
[2022-12-26 09:05] LABS: AMORPHOUS SEDIMENT,UR FEW AMOR URATES /LPF; BACTERIA,URINE FEW /HPF; CLARITY,URINE CLEAR; COLOR,URINE YELLOW; GLUCOSE, URINE (UA) TRACE (NEGATIVE); KETONES,URINE TRACE (NEGATIVE); LEUKOCYTE ESTERASE ,URINE 1+ (NEGATIVE); NITRITE,URINE NEGATIVE (NEGATIVE); PH,URINE 5.5 (5-9); PROTEIN,URINE 2+ (NEGATIVE); SQUAMOUS EPITHELIAL CELL,UR 25-50 /HPF
--- NOTE | 2022-12-26 09:09 | Cardiac Procedure Note-CS/ASA ---
Pre-Procedure Note Pre-Op Procedure Note Date of Available H&P: Dec 23, 2022 Date H&P Reviewed: Dec 26, 2022 Time H&P Reviewed: 09:09 History & Physical: H&P Reviewed, Patient Examed, No changes noted Pre-Operative Diagnosis: CAD Moderate Sedation PreProcedure Time 09:09 ASA Score 3 Airway Lungs Heart ASA score ASA 1: a normal healthy patient ASA 2: a patient with a mild systemic disease (mid diabetes, controlled hypertension, obesity ASA 3: a patient with a severe systemic disease that limits activity (angina, COPD, prior Myocardial infarction) ASA 4: a patient with an incapacitating disease that is a constant threat to life (CHF, renal failure) ASA 5: a moribund patient not expected to survive 24 hrs. (ruptured aneurysm) ASA 6: a declared brain- patient whose organs are being harvested. For emergent operations, add the letter E after the classification Mallampati Classification Grade 3 Sedation Plan Analgesia, Amnesia, Plan communicated to team members, Discussed options with patient/fam, Discussed risks with patient/fam The patient is an appropriate candidate to undergo the planned procedure, sedation, and anesthesia. The patient immediately re-assessed prior to indication. FRED MI MD Dec 26, 2022 09:09
[2022-12-26 09:21] LABS: BILIRUBIN,URINE 1+ (NEGATIVE)
--- NOTE | 2022-12-26 09:47 | Discharge Inst-Post CATH ---
Discharge Inst-CATH/EP Problems Reviewed?: Yes Post Cardiac Cath/EP D/C Inst Follow Up/Plan Appointment with Dr. Gilliland's office in 2 to 4 weeks <b>CARDIAC CATH/EP PROCEDURE DISCHARGE INSTRUCTIONS</b> ACTIVITY * Go Home directly and rest. * Limit activity of the leg (or wrist if it was used) for 7 days including aer obics, swimming, jogging, bicycling, etc. * Restrict stair-climbing for 7 days if possible, if not, climb up with your non-cath leg, then bring together on the same step. * Avoid lifting, pushing, pulling or excessive movement of the affected extremi ty for 7 days. * Customary sexual activity may be resumed after 2 days-use caution not to use a position that strains or causes pain to the affected extremity. * No driving for 24 hours. * NO SMOKING. * Avoid straining for bowel movements for 7 days. * Gentle walking on level ground is allowed. * Returning to work will depend on the type of procedure and the results. Your doctor will discuss this with you. CALL YOUR DOCTOR FOR ANY OF THE FOLLOWING: *If bleeding from the puncture site occurs- Apply gentle pressure to site with clean cloth and call your doctor or EMS. * If a knot or lump forms under the skin, increases in size, or causes pain. * If bruising appears to be worsening or moving further down your leg instead of disappearing. * Temperature above 101 F. CARE OF YOUR GROIN INCISION; * Bruising or purple discoloration of the skin near the puncture site is common. * You may shower only, no bathtub bathing for 5 days. Be careful to avoid slipping as your leg may feel stiff. * If a closure device was used on your femoral artery, please see the attached guide regarding care of the device and your leg. * Leave dressing on FOR 24 hours. CARE OF YOUR WRIST INCISION; * Bruising or purple discoloration of the skin near the puncture site is common. * You may shower. * DO NOT submerge wrist. * Leave dressing on FOR 24 hours. FRED GILLILAND MD Dec 26, 2022 09:46
--- NOTE | 2022-12-26 09:49 | Cardiac Cath Report ---
Cardiac Cath Report Physician (s)/Treating Machine Operator (s) Physician FRED MI MD Pre-Procedure Diagnosis Pre-Procedure Diagnosis: CAD Post-Procedure Note Procedure Start Date: Dec 26, 2022 Name of Procedure: Left heart catheterization Findings/Procedure Note PROCEDURE NOTE: 77-year-old lady with paroxysmal atrial fibrillation, had an abnormal stress test, scheduled for cardiac catheterization possible PTCA. After explaining the procedure to the patient, all pros and cons were explained, all questions were answered. The patient signed the consent and then she was placed in the cardiac catheterization laboratory. Groin was prepped in SL fashion local anesthesia was used. Sheath placed in the right radial artery, [place] catheter was advanced to the left ventricular cavity, pressure was measured, pullback LV to aorta was done, engage the left than the right coronary system and angiogram was done. At the end of the procedure the sheath was removed. Vascular band was used FINDINGS: Hemodynamics LV 89/8, end-diastolic pressure of 8 Aorta 86/56 mean of 70 ANATOMY: Left Main is free of obstructive disease Left Anterior Descending is free of obstructive disease slow flow in the LAD due to small vessel disease Left Circumflex is free of obstructive disease Right Coronary Artery is dominant artery with no obstructive disease LV Gram was not done, pressure was measured CONCLUSION: Small vessel disease with slow flow in the LAD nonobstructive disease Normal left ventricular end-diastolic pressure DISCUSSION AND RECOMMENDATION: Medical therapy is recommended no intervention is warranted Anesthesia Type: Conscious Sedation Estimated blood loss (mL): 10 ml Contrast Amount: 48 ml Total Radiation Dose: 410 mGy Post-Procedure Diagnosis Post-operative diagnosis: Chest pain Coronary artery disease Atrial fibrillation Hypertension FRED MI MD Dec 26, 2022 09:49
== END 2022-12-26 12:15 ==
LOC: CATH 07:28 → SDC 09:55 → CATH 12:15
PROVIDERS: ATTEND Internal Medicine Cardiovascular Disease
DX: I25.10 Atherosclerotic heart disease of native coronary artery without angina pectoris (principal); I10 Essential (primary) hypertension; E66.9 Obesity, unspecified; I48.0 Paroxysmal atrial fibrillation; I08.2 Rheumatic disorders of both aortic and tricuspid valves; I77.819 Aortic ectasia, unspecified site; I65.23 Occlusion and stenosis of bilateral carotid arteries; E03.9 Hypothyroidism, unspecified; I63.9 Cerebral infarction, unspecified; E78.2 Mixed hyperlipidemia; Z68.34 Body mass index [BMI] 34.0-34.9, adult; Z68.33 Body mass index [BMI] 33.0-33.9, adult; Z79.01 Long term (current) use of anticoagulants; Z79.899 Other long term (current) drug therapy; Z79.890 Hormone replacement therapy
CPT/HCPCS: 71045; 80053; 80061; 81000; 85027; 85610; 85730; 87081; 93005; 93458; C1894; 36415

== ENCOUNTER → 2023-01-29 | Day surgery (SDC) | payer MEDICARE, OTHER ==
[~2023-01-29] VITALS: Ht 162.6 cm; Wt 90.0 kg
[~2023-01-29] MED LIST changes: +FLEC50TA PO; +LACTATED RINGERS 1,000 ML 1,000 ML IV PRN; +LEVO100C4 PO; +LIDOCAINE/EPI 1%-1:200,000 (XYLOCAINE) 30 ML VIAL INJ ONE; +LIDOCAINE/EPI 1%-1:200,000 (XYLOCAINE) 30 ML VIAL ONE; +METO-333 PO; +MULT-974 PO; +RIVA20TA PO; +ceFAZolin INJECTION 2,000 MG in NS (IVPB) 50 ML 50 ML IV ONE
--- NOTE | 2023-01-29 08:57 | Progress Note-Pre Operative ---
Pre-Operative Progress Note Date H&P Reviewed: Jan 29, 2023 Time H&P Reviewed: 08:57 History & Physical: H&P Reviewed, Patient Examed, No changes noted Pre-Operative Diagnosis: cholelithiasis JAVAD PEÑALOZA DO Jan 29, 2023 08:57
[2023-01-29 09:00] VITALS: BP 161/112
[2023-01-29 09:40] VITALS: BP 165/78
== END | disposition home or self-care (01) ==
LOC: SDC 08:42
PROVIDERS: ATTEND Surgery
DX: K80.20 Calculus of gallbladder without cholecystitis without obstruction (principal); R00.1 Bradycardia, unspecified; R03.0 Elevated blood-pressure reading, without diagnosis of hypertension; Z53.09 Procedure and treatment not carried out because of other contraindication
CPT/HCPCS: 87081; 93005